=== PATIENT | female | born 1945 | race Caucasian/White ===

== ENCOUNTER → 2017-02-14 | Outpatient (CLI) | payer OTHER, BC | LOC: FIMAGING 12:35 | PROVIDERS: ATTEND Family Medicine | DX: Z12.31 Encounter for screening mammogram for malignant neoplasm of breast (principal) | CPT/HCPCS: G0202 ==

== ENCOUNTER 2018-03-01 13:54 | Inpatient (IN) | payer OTHER, BC ==
--- NOTE | 2018-03-01 14:28 | CPEKG ---
Heart Rate: 86 RR Interval: 698 P-R Interval: 184 QRSD Interval: 106 QT Interval: 364 QTC Interval: 436 P Sterling: 78 QRS Sterling: 18 T Wave Sterling: 39 EKG Severity - NORMAL ECG - EKG Impression: SINUS RHYTHM Electronically Signed By: Bhupinder Carlin 01-Mar-2018 16:45:10
--- NOTE | 2018-03-01 14:37 | EDPHY ---
H & P Stated Complaint: SHAKY/WEAKNESS/DIZZY Time Seen by Provider: 03/01/18 14:37 HPI/ROS: CHIEF COMPLAINT: Fatigue HISTORY OF PRESENT ILLNESS: The patient presents the ED with a 1 month history of fatigue. She reports that she has she has had profound dyspnea with any attempted exertion. She denies any chest pain or prior history of coronary artery disease. She denies asymmetric calf pain or swelling. The patient reports she has a history of Lyme disease and was recently treated with stem cell therapy. She is on a number of medications for hypertension which she has been on since her 20s. REVIEW OF SYSTEMS: A comprehensive 10 point review of systems is otherwise negative aside from elements mentioned in the history of present illness. Source: Patient Exam Limitations: No limitations - Personal History Current Tetanus Diphtheria and Acellular Pertussis (TDAP): Yes - Medical/Surgical History Hx Asthma: No Hx Chronic Respiratory Disease: No Hx Diabetes: No Hx Cardiac Disease: No Hx Renal Disease: No Hx Cirrhosis: No Hx Alcoholism: No Hx HIV/AIDS: No Hx Splenectomy or Spleen Trauma: No Other PMH: HTN LYME DISEASE/ ARTHRITIS0 - Social History Smoking Status: Never smoked - Physical Exam Exam: General Appearance: Alert, no distress Eyes: Pupils equal and round no pallor or injection ENT, Mouth: Mucous membranes moist Respiratory: There are no retractions, lungs are clear to auscultation Cardiovascular: Regular rate and rhythm Gastrointestinal: Abdomen is soft and nontender, no masses, bowel sounds normal Neurological: A&O, normal motor function, normal sensory exam, normal cranial nerves Skin: Warm and dry, no rashes Musculoskeletal: Neck is supple nontender Extremities: symmetrical, full range of motion Constitutional: Initial Vital Signs Temperature (C) 36.8 C 03/01/18 14:03 Heart Rate 96 03/01/18 14:03 Respiratory Rate 18 03/01/18 14:03 Blood Pressure 120/65 03/01/18 14:03 O2 Sat (%) 97 03/01/18 14:03 O2 Delivery Mode Room Air Allergies/Adverse Reactions: penicillin V potassium [From Pen-Vee K] Allergy (Severe, Verified 03/01/18 14:00 ) ANAPHYLACTIC REACTION lisinopril Allergy (Intermediate, Verified 03/01/18 14:00) COUGH IV DYE Allergy (Severe, Uncoded 12/16/12 23:09) ANAPHYLACTIC Home Medications: Medication Instructions Recorded Atorvastatin Calcium [Lipitor 40 40 mg PO HS 03/01/18 mg (*)] Hydrochlorothiazide [HCTZ (*)] 25 mg PO DAILY 03/01/18 Nature-Throid 65 mg PO DAILY 03/01/18 Valsartan [Diovan] 320 mg PO HS 03/01/18 amLODIPine BESYLATE [Norvasc 10 mg 10 mg PO HS 03/01/18 (*)] Medical Decision Making - Diagnostics EKG Interpretation: EKG: Complete interpretation has been separately recorded in the [facility] archive. Summary impression: Sinus rhythm, rate 86 she ED Course/Re-evaluation: The patient presents the ED for evaluation of worsening exertional dyspnea. The patient was noted to be hemodynamically stable. She has no complaints of pleuritic chest pain. The patient denies significant past medical history outside of hypertension although she was apparently treated with some sort of stem cell therapy for reported Lyme disease. The patient's EKG demonstrates no evidence of ischemia. Her chest x-ray demonstrates no evidence of acute disease. Echocardiogram demonstrated no significant wall motion abnormality or pleural effusion. The patient's CBC took some time to around and returned with pancytopenia. The patient's hematocrit is 18%. She is leukopenic and thrombocytopenic. Consultation is made with the hospitalist service and Hematology-Oncology. Spoke with Dr. Keith Castro at 4:00 p.m.. The patient will be admitted to the hospital by Dr. Osei Cyr. The patient will be admitted to the hospital for further evaluation and management. The primary about a in the Differential Diagnosis: Differential diagnosis considered includes congestive heart failure, arrhythmia , dehydration, pneumonia, critical anemia, congestive heart failure, myocardial infarction, cardiomyopathy - Data Points Laboratory Results: Laboratory Results 03/01/18 14:35 03/01/18 14:35 03/01/18 03/01/18 03/01/18 15:04 14:35 14:35 WBC RBC Hgb Hct MCV MCH MCHC RDW Plt Count MPV Neut % (Auto) Lymph % (Auto) [place] % (Auto) Eos % (Auto) Baso % (Auto) Nucleat RBC Rel Count Absolute Neuts (auto) Absolute Lymphs (auto) Absolute Monos (auto) Absolute Eos (auto) Absolute Basos (auto) Absolute Nucleated RBC Immature Gran % Seg Neutrophils % Lymphocytes % Myelocytes % Blast Cells % Immature Gran # Absolute Seg Neuts Absolute Lymphocytes Absolute Monocytes Absolute Myelocytes Absolute Blast Cells Platelet Estimate Oval Macrocytes Rouleaux Smear Review By D-Dimer 0.67 ug/mLFEU H ug/mLFEU (0.00-0.50) Sodium Potassium Chloride Carbon Dioxide Anion Gap BUN Creatinine Estimated GFR Glucose Calcium Lactate Dehydrogenase 534 IU/L IU/L (313-618) POC Troponin I 0.00 ng/mL ng/mL (0.00-0.08) NT-Pro-B Natriuret Pep TSH Free T3 03/01/18 03/01/18 14:35 14:35 WBC 1.68 10^3/uL L 10^3/uL (3.80-9.50) RBC 1.80 10^6/uL L 10^6/uL (4.18-5.33) Hgb 6.3 g/dL L g/dL (12.6-16.3) Hct 18.3 % L % (38.0-47.0) MCV 101.7 fL H fL (81.5-99.8) MCH 35.0 pg H pg (27.9-34.1) MCHC 34.4 g/dL g/dL (32.4-36.7) RDW 15.2 % % (11.5-15.2) Plt Count 18 10^3/uL L* 10^3/uL (150-400) MPV 9.5 fL fL (8.7-11.7) Neut % (Auto) TNP Lymph % (Auto) TNP [place] % (Auto) TNP Eos % (Auto) TNP Baso % (Auto) TNP Nucleat RBC Rel Count 9.5 % H % (0.0-0.2) Absolute Neuts (auto) TNP Absolute Lymphs (auto) TNP Absolute Monos (auto) TNP Absolute Eos (auto) TNP Absolute Basos (auto) TNP Absolute Nucleated RBC 0.16 10^3/uL H 10^3/uL (0-0.01) Immature Gran % TNP Seg Neutrophils % 4.1 % % Lymphocytes % 93.9 % % Myelocytes % 1 % % Blast Cells % 1 % % Immature Gran # TNP Absolute Seg Neuts 0.07 10^/uL L 10^/uL (1.70-6.50) Absolute Lymphocytes 1.58 10^3/uL 10^3/uL (1.00-3.00) Absolute Monocytes 0.00 10^3/uL L 10^3/uL (0.30-0.80) Absolute Myelocytes 0.02 10^3/mL H 10^3/mL (0.00-0.00) Absolute Blast Cells 0.02 10^3/uL H 10^3/uL (0.00-0.00) Platelet Estimate DECREASED L (ADEQ) Oval Macrocytes 1+ H Rouleaux PRESENT H Smear Review By Pending D-Dimer Sodium 137 mEq/L mEq/L (135-145) Potassium 4.3 mEq/L mEq/L (3.3-5.0) Chloride 101 mEq/L mEq/L (97-110) Carbon Dioxide 20 mEq/l L mEq/l (22-31) Anion Gap 16 mEq/L mEq/L (8-16) BUN 35 mg/dL H mg/dL (7-23) Creatinine 1.4 mg/dL H mg/dL (0.6-1.0) Estimated GFR 37 Glucose 110 mg/dL H mg/dL (70-100) Calcium 8.6 mg/dL mg/dL (8.5-10.4) Lactate Dehydrogenase POC Troponin I NT-Pro-B Natriuret Pep 61 pg/mL pg/mL (0-125) TSH 0.438 uIU/mL L uIU/mL (0.465-4.680) Free T3 4.51 pg/mL pg/mL (2.77-5.27) Point of Care Test Results: Chemistry 03/01/18 15:04 POC Troponin I 0.00 ng/mL ng/mL (0.00-0.08) Departure - Departure Disposition: [facility] Inpatient Acute Clinical Impression: Pancytopenia, Exertional dyspnea Condition: Fair
[2018-03-01 15:43] LABS: PLATELET COUNT 18 10^3/uL (150-400)
[2018-03-01] MEDS ORDERED: ONDANSETRON DISINTEGRATING 4 MG TAB PO PRN (16:26)
[2018-03-01] MEDS ORDERED: ONDANSETRON 4 MG/2 ML VIAL IVP PRN (16:26)
--- NOTE | 2018-03-01 16:55 | ECHO ---
[email or web address] [address] Main: [phone] Fax: Transthoracic Echocardiogram Name: WALDO GRANDE MR#: [id number] Study Date: 03/01/2018 Study Time: 03:30 PM Date of : 1945 Age: 72 year(s) Height: 157.5 cm (62 in.) Weight: 124.74 kg (275 lb.) BSA: 2.19 m2 Gender: Female Examination: Echo Indication: Acute SOB Image Quality: Contrast: Requested by: Bhupinder Carlin BP: 120 mmHg/65 mmHg Heart Rate: Rhythm: Normal sinus rhythm Indication: Acute SOB Procedure Staff Client Relationship Manager: Toni Purdy RDCS Reading Physician: Christine Orellana MD Requesting Provider: Conclusions: Normal size left ventricle. No LV hypertrophy. Normal global systolic LV function. EF is 70 %. No regional wall motion abnormality. Normal size right ventricle. Normal RV function. The pulmonary artery pressure is normal. No pericardial effusion. No significant valvular disease. No prior echo. Measurements: Chambers Valvular Assessment AV/MV Valvular Assessment TV/PV Normal Normal Normal Name Value Range Name Value Range Name Value Range Ao Marycarmen (MM): 2.9 cm (2.2 cm-3.7 AV Vmax: 2.33 m/s (1 m/s-1.7 TR Vmax: 2.82 mm/s ( - ) cm) m/s) TR PGmax: 32 mmHg ( - ) IVSd (2D): 1.0 cm (0.6 cm-1.1 AV maxP mmHg ( - ) syst. PAP: 37 mmHg ( - ) cm) LVOT Vmax: 1.04 m/s (0.7 m/s-1.1 PV Vmax: 1.24 m/s (0.6 m/s-0.9 LVDd (2D): 4.4 cm (3.9 cm-5.3 m/s) m/s) cm) MV E Vmax: 1.21 m/s ( - ) PV PGmax: 6 mmHg ( - ) LVDs (2D): 2.7 cm (2.1 cm-4 MV A Vmax: 1.40 m/s ( - ) cm) MV E/A: 0.86 ( - ) LVPWd (2D): 1.0 cm ( - ) LVEF (2D): 70 (>=54 %) Continued Measurements: Chambers Valvular Assessment AV/MV Valvular Assessment TV/PV Patient: WALDO GRANDE Study Date: 03/01/2018 Page 1 of 2 03:30 PM Name Value Name Value Name Value LADs Lon.4 cm MV E/E' Septal: 15.50 CVP (est.): 5 mmHg LA Area: 17.2 cm2 MV E/E' Lateral: 13.90 Findings: Left Ventricle: Normal size left ventricle. No LV hypertrophy. Normal global systolic LV function. EF is 70 %. No regional wall motion abnormality. Diastolic dysfunction is present. . Right Ventricle: Normal size right ventricle. Normal RV function. Left Atrium: The left atrium is normal in size. Right Atrium: The right atrium is normal in size. Mitral Valve: The mitral valve is normal in appearance and function. Aortic Valve: The aortic valve is normal in appearance and function. The aortic valve is tri-leaflet. There is no aortic valve regurgitation. No aortic valve stenosis is present. Tricuspid Valve: The tricuspid valve appears normal. Trivial tricuspid valve regurgitation. The pulmonary artery pressure is normal. Pulmonic Valve: The pulmonic valve is normal in appearance and function. Aorta: The aorta is normal. Pericardium: No pericardial effusion. Exam Comments: (No Signature Object) Patient: WALDO GRANDE Study Date: 03/01/2018 Page 2 of 2 03:30 PM [id number]
--- NOTE | 2018-03-01 17:16 | GHP ---
[f rep st] HISTORY AND PHYSICAL DATE OF ADMISSION: 03/01/2018 HISTORY OF PRESENT ILLNESS: The patient is a 72-year-old female with a history of Lyme disease with resultant arthritis, as well as hypertension and obesity, who presents with fatigue. She has noticed that she has had a poor appetite. She has not had weight loss. She has not had drenching night swe ats. She has noticed she has looked more pale. She has not had black stool. She denies hematemesis , coffee-grounds emesis. She has just noticed increasing dyspnea on exertion, so ultimately sought c are here today, where she was found to be pancytopenic. She has worked as an vocational training teacher. She h as not had much chemical exposure. She has not smoked since 1990. She does not have a family histor y of hematologic malignancies. REVIEW OF SYSTEMS: Complete 10-point review of systems conducted and negative, except as noted in th e HPI. PAST MEDICAL HISTORY: Lyme disease. In the last couple of years, she has had some stem cell therapy , where it sounds like they withdrew stem cells, and 1 time evie stem cells from her bone marrow and injected them into her joint space, and the other time they just replaced them IV. It is not clear w hat alterations were done. This was done in [place]. She also has hypertension, obesity, and hypot hyroidism. ALLERGIES: Penicillin, potassium, lisinopril, and IV dye. HOME MEDICATIONS: Amlodipine, atorvastatin, hydrochlorothiazide, Nature Thyroid, and valsartan. SOCIAL HISTORY: Quit smoking. No tobacco. Originally from [place]. FAMILY HISTORY: Father had heart disease. PHYSICAL EXAMINATION: VITAL SIGNS: Temp 36.8, blood pressure 139/72, pulse 90, breathing 16 times a minute, 100% on room air. GENERAL: No acute distress, anxious. HEENT: Sclerae anicteric. Sclera e are pale. Oropharynx clear. NECK: Supple, without lymphadenopathy or JVD. LUNGS: Clear to ausc ultation bilaterally. HEART: S1, S2. Not tachycardic. ABDOMEN: Soft. Body habitus makes an exam difficult. LOWER EXTREMITIES: Without edema. Calves are nontender. SKIN: Without rash. NEUROLO GIC: Exam is nonfocal. LABORATORY DATA: Sodium is 137, potassium 4.3, chloride 101, bicarb 20, BUN 35, creatinine 1.4. Bas chava is about 1. TSH is slightly low at 0.438. BNP is 61, normal value. Troponin 0. Free T3 is 4 .51. D-dimer is elevated. White count is 1.68, hemoglobin 6.3, hematocrit 18.3. Platelets are 18. EKG interpreted by me shows sinus, with normal axis and intervals and no ST or T-wave changes. I shukla ve discussed the case with Dr. Johnny Carlin. ASSESSMENT AND PLAN: This 72-year-old female presents with pancytopenia. 1. Pancytopenia. The differential includes leukemia, lymphoma, myelodysplastic syndrome, or toxin e xposure. She has had stem cell removal with reintroduction to her joint space. It is hard to see ho w this is playing a role, but I will defer this to Dr. Castro. 2. She will be seen in consultation by Heme-Onc. I have held off on scanning her given her IV contr ast dye. She needs a bone marrow biopsy. 3. Acute kidney injury. Her creatinine is above baseline. I will hold her thiazide, give her some IV fluids. 4. Hypertension. Will continue her amlodipine and will hold her Diovan for the time being. 5. Prophylaxis. Sequential compression devices. Pharmacologic prophylaxis contraindicated given her low platelets. DISPOSITION: Inpatient status. /[id number]/MODL
[2018-03-01] MEDS: NS 1,000 ML IV SCH (17:36)
[2018-03-01] MEDS ORDERED: diphenhydrAMINE 25 MG CAP PO ONE (18:18)
[2018-03-01] MEDS ORDERED: ACETAMINOPHEN 325 MG TAB PO ONE (18:18)
--- NOTE | 2018-03-01 19:16 | GCON ---
[f rep st] CONSULTATION REASON FOR CONSULTATION: Pancytopenia. REFERRING PHYSICIANS: Dr. Cyr. HISTORY OF PRESENT ILLNESS: Zaina is a 72-year-old woman whose main problems has been her morbid obes ity and significant arthritis, who reports that since January 16, she has been feeling weak and lack of st bia. She has had no energy and really has not been eating much. She believes she has lost weight, but does not know how much, although she denies any fever or night sweats. She also notices a heigh tened sense of smell. She felt like at times she was going to fall. More in the last few days, she has noticed that she had been more pale. She denied any bleeding, blood in her stools or black tarry stools. She was having increasing dyspnea on exertion, but denied chest pain. She was having some pain in her left upper quadrant. She presented to the emergency room where they did a CBC that showe d that she was significantly pancytopenic. She is admitted to the hospital for supportive therapy as well as for workup. ALLERGIES: PENICILLIN VK, LISINOPRIL, AND IV CONTRAST DYE. HOME MEDICATIONS: 1. Thyroid replacement. 2. Amlodipine. 3. Atorvastatin. 4. Hydrochlorothiazide. 5. Valsartan. CHRONIC ILLNESSES: 1. High blood pressure. 2. Arthritis particularly in the knees and shoulders for which she has had stem-cell therapy directl y to the knee and shoulder in 2016 and stem-cell therapy intravenously in 2017. 3. Previous Lyme disease. 4. Asthma as a child and seasonal allergies, but she is not on medication. 5. Morbid obesity. 6. Hypothyroidism. SURGICAL HISTORY: She had Achilles repair and tonsillectomy, but has never gone under general anesth esia. SOCIAL HISTORY: She is not , but she has a partner. 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 She previously smoked up until 1990. She probably had approximately 15 pack year hist ory, but denied alcohol or illicit drug use. FAMILY HISTORY: Mother at age 93 from complications of a stroke which she had at 84, and then k idney failure. Father age 68 from complications after cardiac surgery. She has 2 daughters in good health. One sister. There is some cancer in her family, including an aunt with breast cancer, an aunt with pancreatic cancer, an aunt with ovarian cancer, but not in her first-degree relatives. REVIEW OF SYSTEMS: 10-point review of systems performed pertinent positives as per HPI, otherwise ne gative. PHYSICAL EXAM: VITAL SIGNS: Temperature is 36.8, pulse is 93, blood pressure is 123/67. GENERAL: She is a pale-appearing woman, a little bit anxious but in no distress. She is appropriate to the si tuation. HEENT: Sclerae nonicteric. Extraocular muscles are intact. Pupils equal, round, reactive to light. Oral mucosa is unremarkable. It is pale. LUNGS: Clear. CARDIAC: Is hyperdynamic with a systolic flow murmur. Mildly tachycardic. ABDOMEN: Soft. She is mildly tender in the left uppe r quadrant with some fullness, but I can't appreciate a specific spleen tip. No hepatomegaly or palp able masses. I did not do a rectal exam tonight. NEURO: Exam appeared to be grossly intact, althou gh she is generally weak. MUSCULOSKELETAL: Nontender over her spine. LABS: Chemistry panel, BUN and creatinine is 35 and 1.4. LFTs are not done yet. LDH is normal. D- dimer slightly elevated at 0.67. CBC, white count 1700 with an ANC of near 0. Most of the cells wer e lymphocytes. She has some myelocytes in a small amount of blasts and some nucleated red cells. He moglobin is 6.3 g/dL with an MCV of 101. This is before hydration. Platelet count is 18,000. Roule aux was present on the smear. Chest x-ray was reported as unremarkable, no change since 2013. EKG normal sinus rhythm. Echocardiogram showed a normal ejection fraction, some evidence of diastoli c dysfunction. IMPRESSION: Significant pancytopenia. Its specific cause at this point is unknown, but it appears to be some sort of a bone marrow failure whether such as aplastic disease or myelodysplastic syndrome versus an infiltrative disorder such as leukemia, lymphoma is unclear at this time. I will draw some multiple labs tonight, but because she is symptomatic, I have recommended giving her 2 units of blood. Hopefully that will help her feel a little stronger and alleviate some of the dyspnea. Tomorrow, we will talk to her about doing a bone marrow biopsy for diagnostic, and very similar to the procedure she had for collecting stem cells, so she is aware of that. The risk is low with main risks being discomfort, bleeding and infection. I answered her and her family's questions to the best my ability and I will follow up with her while joshua prieto is in the hospital. I did not recommend starting on prophylactic antibiotics as she is not febrile , although she does sometimes feel chilled and cold. We will need to watch her closely. Finally, joshua prieto did not have any significant signs of bleeding or bruising, so did not recommend a platelet transfu nadir. /[id number]/MODL
[2018-03-01 21:25] LABS: HEPATITIS B SURFACE ANTIGEN NEGATIVE (NEGATIVE)
[2018-03-01 21:30] LABS: HEPATITIS B CORE AB IGM NEGATIVE (NEGATIVE)
[2018-03-01 21:42] LABS: HEPATITIS C ANTIBODY TOTAL NEGATIVE (NEGATIVE)
[2018-03-01] MEDS: ATORVASTATIN CALCIUM 40 MG TAB PO SCH (21:50)
[2018-03-01 21:52] LABS: INR 1.27 (0.83-1.16); PROTIME(PATIENT) 16.1 SEC (12.0-15.0)
[2018-03-01 21:57] LABS: PLATELET COUNT 15 10^3/uL (150-400)
[2018-03-02 05:53] LABS: INR 1.23 (0.83-1.16); PROTIME(PATIENT) 15.7 SEC (12.0-15.0)
[2018-03-02 06:10] LABS: PLATELET COUNT 13 10^3/uL (150-400)
[2018-03-02] MEDS: NATURE THROID 65 MG PO SCH (07:41)
[2018-03-02] MEDS ORDERED: HYDROCHLOROTHIAZIDE 25 MG TAB PO SCH (09:00)
[2018-03-02] MEDS: NS 1,000 ML IV SCH (10:29)
--- NOTE | 2018-03-02 13:18 | HOSPPROG ---
Hospitalist Progress Note Assessment/Plan: #Pancytopenia, Etiology unclear, w/u is pending #Morbid Obesity #HTN #acute renal failure #Abd pain, resolved Studies: Echo: Preserved LVEF, Diastolic dysfunction Plan: -transfuse 1 additional PRBC unit -no need for platelets at this time, recheck in a.m. -Stop IVF -Labs in a.m. -BM biopsy today -Hold Thiazide and Diovan. Cont Norvasc -SCD's Subjective: no cp or sob. Hgbs has increased. Cr is improving Objective: Vital Signs Temp Pulse Resp BP Pulse Ox 36.8 C 81 18 126/67 H 96 03/02/18 07:23 03/02/18 07:23 03/02/18 07:23 03/02/18 07:23 03/02/18 07:23 Laboratory Results 03/02/18 04:55 03/02/18 04:55 03/01/18 03/02/18 03/03/18 05:59 05:59 05:59 Intake Total 100 Balance 100 PT 15.7 SEC (12.0-15.0) H 03/02/18 04:55 INR 1.23 (0.83-1.16) H 03/02/18 04:55 - Physical Exam Constitutional: no apparent distress Eyes: PERRL, EOMI Ears, Nose, Mouth, Throat: moist mucous membranes, hearing normal, ears appear normal Cardiovascular: regular rate and rhythym, No edema Respiratory: no respiratory distress, no rales or rhonchi Gastrointestinal: normoactive bowel sounds, soft, non-tender abdomen Skin: warm Musculoskeletal: full muscle strength Neurologic: AAOx3 Psychiatric: interacting appropriately, not anxious, not encephalopathic ICD10 Worksheet Patient Problems: Problems Problem Status Onset Exertional dyspnea Acute Pancytopenia Acute
--- NOTE | 2018-03-02 13:31 | PDMN ---
Medical Necessity Medical necessity: Pt meets IP criteria per MD; est los >2 mn for eval/tx of significant pancytopenia w/dyspnea, fatigue & acute kidney injury; admit for Heme/Onc consult, further workup/monitoring, IVFs, blood transfusion & therapy; hx HTN, Lyme disease; per H&P & order 03/01/18
--- NOTE | 2018-03-02 14:14 | ASMTCMCOM ---
CM Note CM Note Notes: Pt has been admitted with pancytopenia of unknown etiology and is currently being worked up. She has a hx of Lyme disease with stem cell therapy, HTN, morbid obesity, arthritis, hypothyroidism. Oncology is following. She is scheduled for a bone marrow bx today. She has life partner and lives here in [place]. CM will follow for any d/c needs. Date Signed: 03/02/2018 02:13 PM Electronically Signed By:RAVINDER Rivera
[2018-03-02] MEDS ORDERED: LIDOCAINE 1% 5 ML SDV ONE (14:18)
[2018-03-02] MEDS ORDERED: LIDOCAINE 1% 5 ML SDV ID ONE (14:30)
--- NOTE | 2018-03-02 14:44 | SOAPPROG ---
SOAP Progress Note Assessment/Plan: E&M for pancytopenia * Severe Pancytopenia: etiology unknown at this time. With very low counts, aplastic anemia is possible. Cannot r/o leukemia or MDS. Hairy Cell leukemia unlikely with normal spleen. Will try bedside bone marrow but if not successful will consult IR. * Anemia: transfuse with irradiated blood for hgb<7 g/dL * Thrombocytopenia: transfuse irradiated for platelets<10K or bleeding. will give a unit today * Neutropenia: no fever; not on abx at this time Subjective: Feels a little better after transfusion. Some mild nose bleeding but no other bleeding. Objective: Vital Signs Temp Pulse Resp BP Pulse Ox 36.6 C 92 18 141/100 H 99 03/02/18 14:05 03/02/18 14:05 03/02/18 07:23 03/02/18 14:05 03/02/18 14:05 Laboratory Results 03/02/18 04:55 03/02/18 04:55 03/01/18 03/02/18 03/03/18 05:59 05:59 05:59 Intake Total 100 Balance 100 PT 15.7 SEC (12.0-15.0) H 03/02/18 04:55 INR 1.23 (0.83-1.16) H 03/02/18 04:55 Laboratory Tests 03/01/18 03/01/18 14:35 19:40 Vitamin B12 935 H Folate > 20.00 Rheum Factor Semi-Quant < 8.6 Hep Bs Antigen NEGATIVE Hep B Core IgM Ab NEGATIVE Hepatitis C Antibody NEGATIVE U/S - no splenomegaly Physical Exam - Physical Exam General Appearance: no apparent distress, obese Respiratory: lungs clear Cardiac/Chest: regular rate, rhythm Abdomen: soft Rectal: other Skin: other (bruising) ICD10 Worksheet Patient Problems: Problems Problem Status Onset Exertional dyspnea Acute Pancytopenia Acute
--- NOTE | 2018-03-02 16:01 | GPN ---
[f rep st] PROCEDURE NOTE REASON FOR PROCEDURE: Severe pancytopenia. PROCEDURE: Bone marrow aspirate and biopsy. DESCRIPTION OF PROCEDURE: Risks and benefits of the procedure were explained to the patient. Brigid logan consent was obtained. The patient was laid on her stomach, and the right iliac crest was prepped a nd draped in usual sterile fashion. Approximately 10 cc of 1% lidocaine were infused into the area. It was very difficult to find her iliac crest, and initial pass obtained a dry tap. Attempts at a c ore biopsy failed and then she had too much discomfort. Because of her size and the situation, I rec ommended stopping and attempting through Interventional Radiology. /[id number]/MODL
[2018-03-02] MEDS: ACETAMINOPHEN 325 MG TAB PO PRN (16:52)
[2018-03-02] MEDS: ATORVASTATIN CALCIUM 40 MG TAB PO SCH (20:39)
[2018-03-02] MEDS ORDERED: ZOLPIDEM TARTRATE 5 MG TAB PO PRN (23:35)
[2018-03-03 07:02] LABS: PLATELET COUNT 15 10^3/uL (150-400)
--- NOTE | 2018-03-03 07:40 | HOSPPROG ---
Hospitalist Progress Note Assessment/Plan: #Pancytopenia, Etiology unclear, w/u is pending #Morbid Obesity #HTN #acute renal failure, resolved #Abd pain, resolved Studies: Echo: Preserved LVEF, Diastolic dysfunction Plan: NPO for IR BM biopsy today stop IVF once procedure done cont home meds recheck labs in a.m. no indication for transfusion today unless she needs platelets for BM biopsy Platelets were ordered yesterday per Onc but not given. Hold Thiazide. SCD's Subjective: npo. IR to perform BM biopsy today. no cp or sob. Cr has normalized Objective: Vital Signs Temp Pulse Resp BP Pulse Ox 37.1 C 90 18 146/91 H 92 03/03/18 04:00 03/03/18 04:00 03/03/18 04:00 03/03/18 04:00 03/03/18 04:00 Laboratory Results 03/03/18 05:25 03/03/18 05:25 03/02/18 03/03/18 03/04/18 05:59 05:59 05:59 Intake Total 100 Balance 100 PT 15.7 SEC (12.0-15.0) H 03/02/18 04:55 INR 1.23 (0.83-1.16) H 03/02/18 04:55 - Physical Exam Constitutional: no apparent distress, not in pain Eyes: PERRL, EOMI Ears, Nose, Mouth, Throat: moist mucous membranes, hearing normal Cardiovascular: regular rate and rhythym, No edema Respiratory: no rales or rhonchi, clear to auscultation, No no respiratory distress Gastrointestinal: normoactive bowel sounds, soft, non-tender abdomen Skin: warm Musculoskeletal: full muscle strength Neurologic: AAOx3 Psychiatric: interacting appropriately, not anxious, not encephalopathic Lymph, Heme, Immunologic: No petechiae ICD10 Worksheet Patient Problems: Problems Problem Status Onset Exertional dyspnea Acute Pancytopenia Acute
--- NOTE | 2018-03-03 08:26 | SOAPPROG ---
SOAP Progress Note Assessment/Plan: Assessment: 1. Severe pancytopenia. DDx includes leukemia, MDS, aplastic anemia, other 2. Renal impairment, resolved with fluids Plan: - BMBx by IR as soon as possible. bedside BMBx unsuccessful due to pt's body habitus. pt's ANC is 0. Very high risk of infection or bleeding. Prompt diagnosis needed - no transfusions needed today - no clinical e/o DIC but INR mildly elevated- will continue to monitor - prognosis and treatment to be determined by bone marrow biopsy results which should yield the diagnosis. 35 min spent w/ pt and in coordination of care. 03/03/18 08:24 Subjective: no complaints. some bleeding from a venipuncture site and mild epistaxis. Objective: exam; NAD Lungs CTAB CV RRR no MGR Abd: +BS NT ND Ext: no edema Neuro: a+ox3 Skin: no petechie or purpura Vital Signs Temp Pulse Resp BP Pulse Ox 37.1 C 90 18 146/91 H 92 03/03/18 04:00 03/03/18 04:00 03/03/18 04:00 03/03/18 04:00 03/03/18 04:00 Laboratory Results 03/03/18 05:25 03/03/18 05:25 03/02/18 03/03/18 03/04/18 05:59 05:59 05:59 Intake Total 100 Balance 100 PT 15.7 SEC (12.0-15.0) H 03/02/18 04:55 INR 1.23 (0.83-1.16) H 03/02/18 04:55 ICD10 Worksheet Patient Problems: Problems Problem Status Onset Exertional dyspnea Acute Pancytopenia Acute
[2018-03-03] MEDS: NATURE THROID 65 MG PO SCH (11:33)
[2018-03-03] MEDS ORDERED: LIDOCAINE 1% 300 MG/30 ML SDV ONE (12:51)
[2018-03-03] MEDS ORDERED: MEPERIDINE 25 MG/ML SYR IVP PRN (13:48)
[2018-03-03] MEDS ORDERED: PROTAMINE SULFATE 50 MG/5 ML VIAL IVP PRN (13:48)
[2018-03-03] MEDS ORDERED: GLUCAGON HCL 1 MG VIAL IVP PRN (13:48)
[2018-03-03] MEDS ORDERED: fentaNYL 100 MCG/2 ML INJ IVP PRN (13:48)
[2018-03-03] MEDS ORDERED: ALTEPLASE 2 MG VIAL IVP PRN (13:48)
[2018-03-03] MEDS ORDERED: HEPARIN 10,000 UNIT/10 ML MDV (1,000 UNIT/ML) IVP PRN (13:48)
[2018-03-03] MEDS ORDERED: FLUMAZENIL 0.5 MG/5 ML MDV IVP PRN (13:48)
[2018-03-03] MEDS ORDERED: MIDAZOLAM 2 MG/2 ML VIAL IVP PRN (13:48)
[2018-03-03] MEDS ORDERED: NALOXONE HCL 0.4 MG/ML INJ IVP PRN (13:48)
[2018-03-03] MEDS ORDERED: FLUMAZENIL 0.5 MG/5 ML MDV IVP ONE (13:55)
[2018-03-03] MEDS ORDERED: fentaNYL 100 MCG/2 ML INJ ONE (13:55)
[2018-03-03] MEDS ORDERED: NALOXONE HCL 0.4 MG/ML INJ ONE (13:55)
[2018-03-03] MEDS ORDERED: MIDAZOLAM 2 MG/2 ML VIAL ONE (13:55)
--- NOTE | 2018-03-03 13:56 | PDGENHP ---
History & Physical Chief Complaint: pancytopedia History of Present Illness: pancytopenia suspected acute leukemia. Relevant Physical Exam: NAD, aox3 Cardiorespiratory Assessment: rrr, nl wob
--- NOTE | 2018-03-03 13:56 | PDPROPOC ---
Sedation Plan of Care Sedation Plan of Care: vital signs stable, mental status noted, patient educated of risks, benefits, alternatives, patient can tolerate sedation ASA Classification: ASA 3 Planned drugs: fentanyl, midazolam Mallampati Score: Class 3 Mallampati Reference Image:
[2018-03-03] MEDS ORDERED: NS 1,000 ML IV SCH (14:00)
[2018-03-03] MEDS ORDERED: PROMETHAZINE HCL 25 MG/ML INJ IVP ONE (15:15)
--- NOTE | 2018-03-03 15:26 | PDRADPN ---
Radiology Procedure Note Date of Procedure: 03/03/18 Radiologist: Brock Fang Anesthesia: IV Sedation, Local (Specify) Pre-op Diagnosis: pancytopenia Post-op Diagnosis: same Indication: dx Procedure: CT guided bone marrow biopsy Finding(s): via post left iliac 20mL of marrow aspirate obtained via 11G trocar. An intact 2cm x 13G core was then obtained. Inf/Abcess present in the surg proc area at time of surgery?: No EBL: Minimal Complications: none Specimen(s): samples obtained for cytogenetics, flow and molecular per onco request.
[2018-03-03] MEDS: ACETAMINOPHEN 325 MG TAB PO PRN (17:26)
[2018-03-03] MEDS: ATORVASTATIN CALCIUM 40 MG TAB PO SCH (21:13)
[2018-03-03] MEDS: VALSARTAN 160 MG TAB PO SCH (21:13)
[2018-03-04] MEDS: ACETAMINOPHEN 325 MG TAB PO PRN ×2 (03:02→18:09)
[2018-03-04 06:03] LABS: PLATELET COUNT 11 10^3/uL (150-400)
--- NOTE | 2018-03-04 08:18 | HOSPPROG ---
Hospitalist Progress Note Assessment/Plan: #Pancytopenia, Etiology unclear, w/u is pending -Hgb and platelets decreased today -CT guided BM biopsy on 03/03 #Morbid Obesity #HTN -on home meds #acute renal failure, resolved #Abd pain, resolved Studies: Echo: Preserved LVEF, Diastolic dysfunction Plan: -transfuse PRBC today -consider platelet transfusion, will defer to Heme -trend labs -Hold Thiazide. -Issues with peripheral IV, may need a PICC line pending attempt to replace -SCD's Subjective: low Hgb and platelets today. No significant bruising. no cp or sob. Objective: Vital Signs Temp Pulse Resp BP Pulse Ox 36.9 C 85 18 132/71 H 92 03/04/18 07:43 03/04/18 07:43 03/04/18 07:43 03/04/18 07:43 03/04/18 07:43 Laboratory Results 03/04/18 04:50 03/04/18 04:50 03/03/18 03/04/18 03/05/18 05:59 05:59 05:59 Intake Total 650 Balance 650 PT 15.7 SEC (12.0-15.0) H 03/02/18 04:55 INR 1.23 (0.83-1.16) H 03/02/18 04:55 - Physical Exam Constitutional: no apparent distress Eyes: PERRL Ears, Nose, Mouth, Throat: moist mucous membranes Cardiovascular: regular rate and rhythym Respiratory: no respiratory distress Gastrointestinal: normoactive bowel sounds, soft, non-tender abdomen Skin: warm Neurologic: AAOx3 Psychiatric: interacting appropriately, not anxious, not encephalopathic Lymph, Heme, Immunologic: No petechiae ICD10 Worksheet Patient Problems: Problems Problem Status Onset Exertional dyspnea Acute Pancytopenia Acute
[2018-03-04] MEDS: NATURE THROID 65 MG PO SCH (10:14)
--- NOTE | 2018-03-04 17:15 | ASMTCMCOM ---
CM Note CM Note Notes: CM reviewed patient with VIVI Deng, patient received blood today and discharge date unknown. PT rec' Home Care. CM met with patient and family, patient has not worked with HH agency in the past. Family states they are looking into getting stair riser installed, CM gave [facility] info for possible resources. CM to follow. D/C Plan: TBD. Date Signed: 03/04/2018 05:14 PM Electronically Signed By:Elisha Renteria
[2018-03-04] MEDS: ATORVASTATIN CALCIUM 40 MG TAB PO SCH (20:21)
[2018-03-04] MEDS: VALSARTAN 160 MG TAB PO SCH (20:21)
[2018-03-05 04:56] LABS: INR 1.16 (0.83-1.16)
[2018-03-05 05:27] LABS: PLATELET COUNT 14 10^3/uL (150-400)
[2018-03-05] MEDS: ACETAMINOPHEN 325 MG TAB PO PRN (07:53)
--- NOTE | 2018-03-05 08:24 | HOSPPROG ---
Hospitalist Progress Note Assessment/Plan: Patient is a 72-year-old female with history of Lyme disease with resultant arthritis. She presented to the emergency room with fatigue and also had a poor appetite. Today is my 1st encounter with the patient. Chart reviewed. #Pancytopenia, Etiology unclear, w/u is pending -Hgb and platelets decreased, was given a unit of packed red blood cells on 03/04 -CT guided BM biopsy on 03/03 -DDX includes; Leukemia, MDS, aplastic anemia #Morbid Obesity -BMI of 50 #HTN -on home meds #acute renal failure, resolved #Abd pain, resolved Plan: -awaiting biopsy results to decide on treatment, hold transfusion for now unless hematology recommends it Subjective: Zaina has no c/o pain. Feeling better than she was prior to being admitted. Objective: Vital Signs Temp Pulse Resp BP Pulse Ox 37.1 C 81 18 111/70 93 03/05/18 07:25 03/05/18 07:25 03/05/18 07:25 03/05/18 07:25 03/05/18 07:25 Laboratory Results 03/05/18 04:37 03/05/18 04:37 03/04/18 03/05/18 03/06/18 05:59 05:59 05:59 Intake Total 650 550 Balance 650 550 PT 15.0 SEC (12.0-15.0) 03/05/18 04:37 INR 1.16 (0.83-1.16) 03/05/18 04:37 - Physical Exam Constitutional: no apparent distress, not in pain, chronically ill appearing, obese Eyes: PERRL Ears, Nose, Mouth, Throat: hearing normal Cardiovascular: regular rate and rhythym, no murmur, rub, or gallop, edema ( bilateral lower extremity) Respiratory: no respiratory distress, reduced air movement Skin: warm, No normal color (pale) Neurologic: AAOx3 Psychiatric: interacting appropriately ICD10 Worksheet Patient Problems: Problems Problem Status Onset Exertional dyspnea Acute Pancytopenia Acute
[2018-03-05] MEDS: NATURE THROID 65 MG PO SCH (10:01)
[2018-03-05] MEDS ORDERED: LACTULOSE 20 GM/30 ML UDCUP PO PRN (12:43)
[2018-03-05] MEDS ORDERED: POLYETHYLENE GLYCOL 3350 17 GM PKT PO PRN (12:43)
[2018-03-05] MEDS ORDERED: BISACODYL 10 MG SUPP PR PRN (12:43)
--- NOTE | 2018-03-05 16:08 | SOAPPROG ---
SOAP Progress Note Assessment/Plan: Assessment: 1. Severe pancytopenia. DDx includes leukemia, MDS, aplastic anemia, other. Aspirate is non diagnostic. Awaiting cores/flow/cytogenetics 2. Renal impairment, resolved with fluids Plan: - BMBx results are pending - no transfusions needed today - no clinical e/o DIC but INR mildly elevated- will continue to monitor - prognosis and treatment to be determined by bone marrow biopsy results which should yield the diagnosis. Subjective: No new complaints. Has subjectively more energy after each transfusion. No acute bleeding Objective: Vital Signs Temp Pulse Resp BP Pulse Ox 36.9 C 85 18 113/75 98 03/05/18 15:27 03/05/18 15:27 03/05/18 15:27 03/05/18 15:27 03/05/18 15:27 Laboratory Results 03/05/18 04:37 03/05/18 04:37 03/03/18 03/04/18 03/05/18 23:59 23:59 23:59 Intake Total 650 350 200 Balance 650 350 200 PT 15.0 SEC (12.0-15.0) 03/05/18 04:37 INR 1.16 (0.83-1.16) 03/05/18 04:37 Physical Exam - Physical Exam General Appearance: no apparent distress Respiratory: lungs clear Cardiac/Chest: regular rate, rhythm Abdomen: soft Skin: pallor Extremities: pedal edema Neuro/Psych: normal mood/affect, oriented x 3 ICD10 Worksheet Patient Problems: Problems Problem Status Onset Exertional dyspnea Acute Pancytopenia Acute
[2018-03-05] MEDS: SENNOSIDES/DOCUSATE SODIUM TAB PO SCH (20:54)
[2018-03-05] MEDS: ATORVASTATIN CALCIUM 40 MG TAB PO SCH (20:54)
[2018-03-05] MEDS: VALSARTAN 160 MG TAB PO SCH (20:55)
[2018-03-06 05:40] LABS: PLATELET COUNT 11 10^3/uL (150-400)
[2018-03-06] MEDS: SENNOSIDES/DOCUSATE SODIUM TAB PO SCH ×2 (08:11→20:29)
[2018-03-06] MEDS: ACETAMINOPHEN 325 MG TAB PO PRN ×2 (08:15→16:48)
[2018-03-06] MEDS: NATURE THROID 65 MG PO SCH (09:17)
--- NOTE | 2018-03-06 09:35 | HOSPPROG ---
Hospitalist Progress Note Assessment/Plan: Patient is a 72-year-old female with history of Lyme disease with resultant arthritis. She presented to the emergency room with fatigue and also had a poor appetite. #Pancytopenia, Etiology unclear, w/u is pending -Hgb and platelets decreased, was given a unit of packed red blood cells on 03/04 -will give another unit today -CT guided BM biopsy on 03/03 -DDX includes; Leukemia, MDS, aplastic anemia -with very low platelet count, will have bp checked bid, causes her pain and bruising #Morbid Obesity -BMI of 50 #HTN -on home meds -parameters placed as when to hold #acute renal failure, resolved #Abd pain, resolved Plan: -awaiting biopsy results to decide on treatment Subjective: Zaina is feeling fine today. Objective: Vital Signs Temp Pulse Resp BP Pulse Ox 36.8 C 82 20 121/74 H 94 03/06/18 08:00 03/06/18 08:00 03/06/18 08:00 03/06/18 08:00 03/06/18 08:00 Laboratory Results 03/06/18 05:06 03/05/18 04:37 03/05/18 03/06/18 03/07/18 05:59 05:59 05:59 Intake Total 550 200 Balance 550 200 PT 15.0 SEC (12.0-15.0) 03/05/18 04:37 INR 1.16 (0.83-1.16) 03/05/18 04:37 - Physical Exam Constitutional: no apparent distress, not in pain, obese Eyes: PERRL Ears, Nose, Mouth, Throat: hearing normal Cardiovascular: regular rate and rhythym, other (distant heart tones) Respiratory: no respiratory distress, reduced air movement Skin: other (multiple areas of ecchymosis noted from previous iv sites) Musculoskeletal: generalized weakness Neurologic: AAOx3 Psychiatric: interacting appropriately ICD10 Worksheet Patient Problems: Problems Problem Status Onset Exertional dyspnea Acute Pancytopenia Acute
[2018-03-06] MEDS ORDERED: ACETAMINOPHEN 325 MG TAB PO ONE (10:04)
--- NOTE | 2018-03-06 12:59 | SOAPPROG ---
SOAP Progress Note Assessment/Plan: Assessment: 1. Severe pancytopenia. DDx includes leukemia, MDS, aplastic anemia, other. Aspirate is non diagnostic. Awaiting cores/flow/cytogenetics. Hgb down to 7.0. Will transfuse 1 unit PRBC. Path is still pending. Hopefully will have some results tomorrow. 2. Renal impairment, resolved with fluids Plan: - BMBx results are pending. Check when available - 1 unit PRBC needed today - no clinical e/o DIC but INR mildly elevated- will continue to monitor - prognosis and treatment to be determined by bone marrow biopsy results which should yield the diagnosis. Subjective: Anxious. Hoping for a diagnosis that can be treated with curative intent. Objective: Vital Signs Temp Pulse Resp BP Pulse Ox 36.8 C 82 20 121/74 H 94 03/06/18 08:00 03/06/18 08:00 03/06/18 08:00 03/06/18 08:00 03/06/18 08:00 Laboratory Results 03/06/18 05:06 03/05/18 04:37 03/04/18 03/05/18 03/06/18 23:59 23:59 23:59 Intake Total 350 200 200 Balance 350 200 200 PT 15.0 SEC (12.0-15.0) 03/05/18 04:37 INR 1.16 (0.83-1.16) 03/05/18 04:37 Physical Exam - Physical Exam General Appearance: alert Skin: pallor Neuro/Psych: other (appropriately anxious) ICD10 Worksheet Patient Problems: Problems Problem Status Onset Exertional dyspnea Acute Pancytopenia Acute
--- NOTE | 2018-03-06 13:55 | ASMTCMCOM ---
CM Note CM Note Notes: CM met w/ pt and family for dispo planning. PT is recommending HC. Pt is agreeable to having a physical therapist come into the home. CM provided pt w/ list of HC agencies. Pt would like to use [facility]. Referral sent to [facility]. Denisha from [facility] met w/ pt and family. CM to follow. Plan: [facility]; PT Date Signed: 03/06/2018 01:54 PM Electronically Signed By:GEE Odom
[2018-03-06] MEDS: VALSARTAN 160 MG TAB PO SCH (20:22)
[2018-03-06] MEDS: ATORVASTATIN CALCIUM 40 MG TAB PO SCH (20:23)
[2018-03-07 05:31] LABS: PLATELET COUNT 10 10^3/uL (150-400)
[2018-03-07] MEDS: ACETAMINOPHEN 325 MG TAB PO PRN ×3 (05:51→21:17)
[2018-03-07] MEDS: NATURE THROID 65 MG PO SCH (09:57)
[2018-03-07] MEDS: SENNOSIDES/DOCUSATE SODIUM TAB PO SCH ×2 (09:58→21:20)
--- NOTE | 2018-03-07 11:49 | HOSPPROG ---
Hospitalist Progress Note Assessment/Plan: Patient is a 72-year-old female with history of Lyme disease with resultant arthritis. She presented to the emergency room with fatigue and also had a poor appetite. #Pancytopenia, Etiology unclear, w/u is pending -Hgb and platelets decreased, was given a unit of packed red blood cells on & 03/06 -recommendation is not to give platelets unless bleeding, she will likely require multiple transfusions in the OP setting -CT guided BM biopsy on 03/03 -with very low platelet count, will have bp checked bid, causes her pain and bruising -possible myelodysplasia #Morbid Obesity -BMI of 50 #HTN -on home meds -parameters placed as when to hold #acute renal failure, resolved #Abd pain, resolved Plan: D/C to home in AM as long as she is stable F/U with Dr. España on 09 MARCH 2018 No platelet transfusions unless significant bleeding or pre-procedure will need home care Subjective: Zaina has no complaints x that she is exhausted. Objective: Vital Signs Temp Pulse Resp BP Pulse Ox 37.3 C 84 18 113/57 L 95 03/07/18 07:52 03/07/18 07:52 03/07/18 07:52 03/07/18 07:52 03/07/18 07:52 Laboratory Results 03/07/18 04:55 03/05/18 04:37 03/06/18 03/07/18 03/08/18 05:59 05:59 05:59 Intake Total 200 150 Balance 200 150 PT 15.0 SEC (12.0-15.0) 03/05/18 04:37 INR 1.16 (0.83-1.16) 03/05/18 04:37 - Physical Exam Constitutional: obese, uncomfortable Eyes: PERRL Ears, Nose, Mouth, Throat: hearing normal Cardiovascular: regular rate and rhythym Respiratory: no respiratory distress Skin: warm, No normal color (pale) Musculoskeletal: generalized weakness Neurologic: AAOx3 Psychiatric: interacting appropriately ICD10 Worksheet Patient Problems: Problems Problem Status Onset Exertional dyspnea Acute Pancytopenia Acute
--- NOTE | 2018-03-07 16:17 | SOAPPROG ---
SOAP Progress Note Assessment/Plan: Assessment: 1. Severe pancytopenia. At this point we have preliminary information that the patient's bone marrow is hypocellular but that there are excess blasts in the cellularity that is present. Her flow cytometry shows 8% blasts. The specimens have been sent to the [facility] for a second opinion. 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 I discussed the patients case with Dr. España and Gloira. She may be a candidate for participation in a clinical trial that we have open that looks at Azacitidine +/- Pevinedostat. This is out patient therapy. I discussed this with the patient and her daughters. The plan will be to discharge her to home tomorrow for follow up in the office with Dr. España on 09 MARCH 2018 to further evaluate her eligibility for the clinical trial. Plan: D/C to home in AM F/U with Dr. España on 09 MARCH 2018 No platelet transfusions unless significant bleeding or pre-procedure 40 min in face to face discussion with patient and daughters as well as in coordination of care. Subjective: Anxious to discuss diagnosis and treatment plan. Objective: Vital Signs Temp Pulse Resp BP Pulse Ox 37.3 C 84 18 113/57 L 95 03/07/18 07:52 03/07/18 07:52 03/07/18 07:52 03/07/18 07:52 03/07/18 07:52 Laboratory Results 03/07/18 04:55 03/05/18 04:37 03/05/18 03/06/18 03/07/18 23:59 23:59 23:59 Intake Total 200 200 150 Balance 200 200 150 PT 15.0 SEC (12.0-15.0) 03/05/18 04:37 INR 1.16 (0.83-1.16) 03/05/18 04:37 Physical Exam - Physical Exam General Appearance: alert, no apparent distress Skin: pallor ICD10 Worksheet Patient Problems: Problems Problem Status Onset Exertional dyspnea Acute Pancytopenia Acute
[2018-03-07] MEDS: VALSARTAN 160 MG TAB PO SCH (21:17)
[2018-03-07] MEDS: ATORVASTATIN CALCIUM 40 MG TAB PO SCH (21:18)
[2018-03-08] MEDS: ACETAMINOPHEN 325 MG TAB PO PRN (05:44)
[2018-03-08 05:58] LABS: PLATELET COUNT 9 10^3/uL (150-400)
[2018-03-08] MEDS: SENNOSIDES/DOCUSATE SODIUM TAB PO SCH (10:35)
[2018-03-08] MEDS: NATURE THROID 65 MG PO SCH (10:38)
--- NOTE | 2018-03-08 11:13 | PDIAF ---
- Diagnosis Diagnosis: MDS Code Status: Full Code - Medication Management Discharge Medications: Medications to Continue on Transfer Atorvastatin Calcium [Lipitor 40 mg (*)] 40 mg PO HS 03/01/18 [Last Taken ] Nature-Throid 65 mg PO DAILY 03/01/18 [Last Taken 03/01/18] Valsartan [Diovan] 320 mg PO HS 03/01/18 [Last Taken 02/28/18] amLODIPine BESYLATE [Norvasc 10 mg (*)] 10 mg PO HS 03/01/18 [Last Taken ] Discharge Medications: Refer to the Discharge Home Medication list for PRN reason. - Orders Services needed: Home Care, Registered Nurse, Certified Resident Physician In Radiology, Physical Therapy, Occupational Therapy Home Care Face to Face: I certify that this patient was under my care and that I had the required [id number] encounter meeting the encounter requirements on the discharge day. My findings support the fact that the patient is homebound as defined in Home Care Face to Face Continued: CMS Chapter 7 Medicare Benefits Manual 30.1.1 , The condition of the patient is such that there exists a normal inability to leave home and consequently, leaving home would require a considerable and taxing effort. Isolation Type: Neutropenic Isolation Diet Recommendation: no restrictions on diet - Follow Up Care Current Providers and Referrals: Hima Whittington DO [Primary Care Provider] - As per Instructions Alice España MD [Medical Doctor] - 1-2 days (Please call to make appointment with Dr. España tomorrow )
[2018-03-08 13:05] VITALS: BP 112/64
--- NOTE | 2018-03-08 13:29 | SOAPPROG ---
[facility] Progress Note Assessment/Plan: Assessment: 1. Severe pancytopenia. At this point we have preliminary information that the patient's bone marrow is hypocellular but that there are excess blasts in the cellularity that is present. Her flow cytometry shows 8% blasts. The specimens have been sent to the [facility] for a second opinion. 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 I discussed the patients case with Dr. España and Gloria. She may be a candidate for participation in a clinical trial that we have open that looks at Azacitidine +/- Pevinedostat. This is out patient therapy. I discussed with Zaina today the serious nature of her condition. She is aware that although treatable, this is definitely a life threatening condition and palliation may be the best that we can hope for. Plan: D/C to home today F/U with Dr. España on 09 MARCH 2018 No platelet transfusions unless significant bleeding or pre-procedure Subjective: No new complaints Objective: Vital Signs Temp Pulse Resp BP Pulse Ox 36.9 C 81 17 112/64 95 03/08/18 08:00 03/08/18 08:00 03/08/18 08:00 03/08/18 08:00 03/08/18 08:00 Laboratory Results 03/08/18 05:06 03/05/18 04:37 03/06/18 03/07/18 03/08/18 23:59 23:59 23:59 Intake Total 200 150 300 Output Total 200 400 Balance 200 -50 -100 PT 15.0 SEC (12.0-15.0) 03/05/18 04:37 INR 1.16 (0.83-1.16) 03/05/18 04:37 Physical Exam - Physical Exam General Appearance: alert Skin: pallor Neuro/Psych: alert, oriented x 3 ICD10 Worksheet Patient Problems: Problems Problem Status Onset Exertional dyspnea Acute Pancytopenia Acute
--- NOTE | 2018-03-08 13:45 | ASMTDCNOTE ---
Case Management Discharge Discharge Order Complete? Answers: Yes Patient to Obtain Answers: Independently Medications Transportation Arranged Answers: Family/Friends Faxed Final Orders Answers: Yes Notes: [facility] Agency/Facility Transfer Answers: Yes Notes: [facility] Report Printed & Faxed to Receiving Agency Family Notified Answers: Yes Discharge Comments Notes: Pt D/C ing home with BF and daughter. [facility] will provide home services to include an RN. DIRECTOR OF HOME ECONOMICS, PT and OT. Pt to schedule an appt with Dr. España tomorrow. Date Signed: 03/08/2018 01:44 PM Electronically Signed By:Chely Walter
--- NOTE | 2018-03-08 13:46 | ASMTLACE ---
CHRISTIANAE Length of stay for Answers: 7-13 days current admission Acuity / Level of Answers: Yes Care: Did the patient have an inpatient admission? # of Emergency department Answers: 1-2 visits in the last 6 months Score: 9 Date Signed: 03/08/2018 01:46 PM Electronically Signed By:Cheyl Walter
--- NOTE | 2018-03-08 17:01 | GDS ---
[f rep st] DISCHARGE SUMMARY DISCHARGE DIAGNOSES: 1. 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 2. Morbid obesity. BMI 50. 3. Hypertension. 4. Lyme disease related arthritis. HOSPITAL COURSE: The patient is a 72-year-old female who presented with pancytopenia. Bone marrow b iopsy revealed myelodysplastic syndrome that look like it was involving into AML. She was seen here in consultation with Oncology. Treatment will be outpatient and she will be enrolled in a clinical t rial with Dr. España. She was cleared to discharge home today despite current low levels and will fol low up tomorrow with Dr. España in the office to initiate the treatment protocol. DISCHARGE MEDICATIONS: Please see computerized record for full detailed list. There are no new medi cations given at time of hospital discharge. ADDITIONAL DISCHARGE INSTRUCTIONS: Follow up with Dr. España in 1 day at [facility] to initiate chemotherapy and clinical trial protocol. Greater than 30 minutes of time was spent arranging this discharge. Patient seen and examined by me on the day of discharge. /[id number]
== END 2018-03-08 14:34 | disposition home or self-care (01) | DRG 809 ==
LOC: F3E 17:14 → F1N 03-07 17:32
PROVIDERS: ADMIT Internal Medicine; ATTEND Internal Medicine
PROC: 30233N1 Transfusion of Nonautologous Red Blood Cells into Peripheral Vein, Percutaneous Approach (ICD-10-PCS; 2018-03-01)
PROC: 07DR3ZX Extraction of Iliac Bone Marrow, Percutaneous Approach, Diagnostic (ICD-10-PCS; principal; 2018-03-03)
DX: D61.818 Other pancytopenia (principal); D46.9 Myelodysplastic syndrome, unspecified; C92.90 Myeloid leukemia, unspecified, not having achieved remission; N17.9 Acute kidney failure, unspecified; A69.23 Arthritis due to Lyme disease; E66.01 Morbid (severe) obesity due to excess calories; Z68.43 Body mass index [BMI] 50.0-59.9, adult; I10 Essential (primary) hypertension; E03.9 Hypothyroidism, unspecified; Z87.891 Personal history of nicotine dependence
CPT/HCPCS: 82607-90; 84481-90; 84484-PO; 85060-90; 86334-90; 86705-90; 86870-90; 86905-90; 86922-90; 88184-90; 88185-91; 88237-90; 88262-90; 88342; 97116-GP; 97161-GP; 99001-90; G0472; G8978-GP-CJ; G8979-GP-CI; G8979-GP-CJ; G8980-GP-CI; J2250; J2310; J2405; J2550; J3010; P9016; P9040

== ENCOUNTER 2018-03-11 06:37 | Emergency (ER) | payer OTHER, BC ==
--- NOTE | 2018-03-11 07:26 | EDPHY ---
H & P Time Seen by Provider: 03/11/18 07:03 HPI/ROS: CHIEF COMPLAINT: Bleeding tooth HISTORY OF PRESENT ILLNESS: Patient is a 72-year-old female recently diagnosed with myelodysplastic syndrome who presents to the emergency department with bleeding gums. 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 She was ultimately discharged on 03/08/2018. Yesterday morning she was using a water pick. She developed bleeding in the left upper teeth. The bleeding subsequently stopped after about 15 min but then returned at 3:00 p.m.. Persisted until 10:00 p.m. When she went to bed. She again was awoke in at 2:00 a.m. With bleeding gums. Is persisted since that time. She is not lightheaded or dizzy. No joint pain. No other bruising or bleeding sites. REVIEW OF SYSTEMS: My complete review of systems is negative except as mentioned in the HPI. Past Medical/Surgical History: Includes myelodysplastic disorder, obesity, hypertension, Lyme disease, arthritis Social history: Patient does not smoke Smoking Status: Never smoked Physical Exam: Vitals noted. Tachycardic at 101 GENERAL: Well-appearing, in no acute distress, alert. HEENT: Eyes normal to inspection, normal pharynx, no signs of dehydration. Patient has bleeding on her left upper gum around her teeth. NECK: No thyromegaly, no lymphadenopathy, supple. RESPIRATORY: Clear to auscultation bilaterally, no rales, rhonchi or wheezing. CVS: Regular rate and rhythm, no rubs, murmurs, or gallops. ABDOMEN: Soft, nontender, nondistended, no organomegaly. BACK: Normal to inspection, no CVA tenderness. SKIN: Normal color, no rash, warm, dry. No pallor. EXTREMITIES: No pedal edema, no calf tenderness, no Homans sign or cords, no joint swelling. NEURO/PSYCH: Alert and oriented x3, normal mood and affect, normal motor sensory exam. Constitutional: Initial Vital Signs Temperature (C) 36.8 C 03/11/18 06:43 Heart Rate 101 H 03/11/18 06:43 Respiratory Rate 18 03/11/18 06:43 Blood Pressure 147/94 H 03/11/18 06:43 O2 Sat (%) 96 03/11/18 06:43 O2 Delivery Mode Room Air Allergies/Adverse Reactions: penicillin V potassium [From Pen-Vee K] Allergy (Severe, Verified 03/01/18 14:00 ) ANAPHYLACTIC REACTION lisinopril Allergy (Intermediate, Verified 03/01/18 14:00) COUGH animal dander Allergy (Verified 03/11/18 06:49) IV DYE Allergy (Severe, Uncoded 12/16/12 23:09) ANAPHYLACTIC Home Medications: Medication Instructions Recorded Atorvastatin Calcium [Lipitor 40 40 mg PO HS 03/01/18 mg (*)] Nature-Throid 65 mg PO DAILY 03/01/18 Valsartan [Diovan] 320 mg PO HS 03/01/18 amLODIPine BESYLATE [Norvasc 10 mg 10 mg PO HS 03/01/18 (*)] Medical Decision Making ED Course/Re-evaluation: In the emergency department I discussed possible etiologies with the patient. I answered all her questions. I reviewed the patient's laboratory studies 03/07: 1.36, hematocrit 23.5, platelets 10 03/09: 1.31, hematocrit 20, platelets 9 830: Chemistry panel is normal. INR is 1.17. Awaiting CBC The lab was called regarding the CBC Platelet count was 7. This was pre transfusion. Patient was given a transfusion of platelets. Patient's bleeding improved after the platelets were given. I discussed packing options with the patient. She felt comfortable with discharge. She will return with worsening symptoms. Differential Diagnosis: My differential includes but is not limited to thrombocytopenia, malignancy, internal bleeding, gingivitis, infection - Data Points Laboratory Results: Laboratory Results 03/11/18 07:50 03/11/18 07:50 03/11/18 03/11/18 03/11/18 07:50 07:50 07:50 WBC RBC Hgb Hct MCV MCH MCHC RDW Plt Count MPV Neut % (Auto) Lymph % (Auto) Bennett % (Auto) Eos % (Auto) Baso % (Auto) Nucleat RBC Rel Count Absolute Neuts (auto) Absolute Lymphs (auto) Absolute Monos (auto) Absolute Eos (auto) Absolute Basos (auto) Absolute Nucleated RBC Immature Gran % Seg Neutrophils % Band Neutrophils % Lymphocytes % Monocytes % Eosinophils % Basophils % Metamyelocytes % Myelocytes % Promyelocytes % Blast Cells % Immature Gran # Absolute Seg Neuts Absolute Band Neuts Absolute Lymphocytes Absolute Monocytes Absolute Eosinophils Absolute Basophils Absolute Metamyelocyte Absolute Myelocytes Absolute Promyelocytes Absolute Plasma Cells Absolute Blast Cells Plasma Cells % Platelet Estimate Microcytic Cells Smear Review By PT 15.1 SEC H SEC (12.0-15.0) INR 1.17 H (0.83-1.16) APTT 32.0 SEC SEC (23.0-38.0) Sodium 143 mEq/L mEq/L (135-145) Potassium 3.8 mEq/L mEq/L (3.3-5.0) Chloride 109 mEq/L mEq/L (97-110) Carbon Dioxide 24 mEq/l mEq/l (22-31) Anion Gap 10 mEq/L mEq/L (8-16) BUN 19 mg/dL mg/dL (7-23) Creatinine 0.8 mg/dL mg/dL (0.6-1.0) Estimated GFR > 60 Glucose 108 mg/dL H mg/dL (70-100) Calcium 8.9 mg/dL mg/dL (8.5-10.4) Patient ABO/Rh A POSITIVE Antibody Screen Pending Platelet Orders Status READY 03/11/18 07:50 WBC 1.20 10^3/uL L 10^3/uL (3.80-9.50) RBC 2.57 10^6/uL L 10^6/uL (4.18-5.33) Hgb 8.4 g/dL L g/dL (12.6-16.3) Hct 24.0 % L % (38.0-47.0) MCV 93.4 fL fL (81.5-99.8) MCH 32.7 pg pg (27.9-34.1) MCHC 35.0 g/dL g/dL (32.4-36.7) RDW 16.3 % H % (11.5-15.2) Plt Count 7 10^3/uL L* 10^3/uL (150-400) MPV TNP Neut % (Auto) Not Reported Lymph % (Auto) Not Reported Bennett % (Auto) Not Reported Eos % (Auto) Not Reported Baso % (Auto) Not Reported Nucleat RBC Rel Count Not Reported Absolute Neuts (auto) Not Reported Absolute Lymphs (auto) Not Reported Absolute Monos (auto) Not Reported Absolute Eos (auto) Not Reported Absolute Basos (auto) Not Reported Absolute Nucleated RBC Not Reported Immature Gran % Not Reported Seg Neutrophils % 3.1 % % Band Neutrophils % 0 % % Lymphocytes % 91.9 % % Monocytes % 1.0 % % Eosinophils % 0 % % Basophils % 0 % % Metamyelocytes % 0 % % Myelocytes % 0 % % Promyelocytes % 0 % % Blast Cells % 3.0 % % Immature Gran # Not Reported Absolute Seg Neuts 0.04 10^/uL L 10^/uL (1.70-6.50) Absolute Band Neuts 0.00 10^3/uL 10^3/uL (0.00-0.70) Absolute Lymphocytes 1.10 10^3/uL 10^3/uL (1.00-3.00) Absolute Monocytes 0.01 10^3/uL L 10^3/uL (0.30-0.80) Absolute Eosinophils 0.00 10^3/uL L 10^3/uL (0.03-0.40) Absolute Basophils 0.00 10^3/uL L 10^3/uL (0.02-0.10) Absolute Metamyelocyte 0.00 10^3/mL 10^3/mL (0.00-0.00) Absolute Myelocytes 0.00 10^3/mL 10^3/mL (0.00-0.00) Absolute Promyelocytes 0.00 10^3/uL 10^3/uL (0.00-0.00) Absolute Plasma Cells 0.01 10^3/uL H 10^3/uL (0.00-0.00) Absolute Blast Cells 0.04 10^3/uL H 10^3/uL (0.00-0.00) Plasma Cells % 1.0 % % Platelet Estimate DECREASED L (ADEQ) Microcytic Cells 1+ H Smear Review By Pending PT INR APTT Sodium Potassium Chloride Carbon Dioxide Anion Gap BUN Creatinine Estimated GFR Glucose Calcium Patient ABO/Rh Antibody Screen Platelet Orders Status Departure - Departure Disposition: Home, Routine, Self-Care Clinical Impression: Thrombocytopenia, Gums, bleeding Condition: Good Instructions: Thrombocytopenia (ED) Additional Instructions: Return with increased bleeding or any other concerns. Referrals: Alice España MD [Primary Care Provider] - 2-3 days without fail
[2018-03-11 08:10] LABS: INR 1.17 (0.83-1.16); PROTIME(PATIENT) 15.1 SEC (12.0-15.0)
[2018-03-11 09:19] LABS: PLATELET COUNT 7 10^3/uL (150-400)
[2018-03-11 10:13] VITALS: BP 168/72
== END 2018-03-11 10:05 | disposition home or self-care (01) ==
PROC: 30233R1 Transfusion of Nonautologous Platelets into Peripheral Vein, Percutaneous Approach (ICD-10-PCS; principal; 2018-03-11)
DX: K06.8 Other specified disorders of gingiva and edentulous alveolar ridge (principal); D69.6 Thrombocytopenia, unspecified; I10 Essential (primary) hypertension
CPT/HCPCS: 36430; 99285; P9073

== ENCOUNTER 2018-03-18 09:09 | Outpatient (CLI) | payer OTHER, BC ==
[2018-03-18 11:06] VITALS: BP 124/78
== END 2018-03-18 15:15 | disposition home or self-care (01) ==
LOC: FOBOP 09:09
PROVIDERS: ATTEND Internal Medicine Hematology & Oncology
DX: D46.9 Myelodysplastic syndrome, unspecified (principal)
CPT/HCPCS: 36430; P9016; P9040; P9073; 86905-90

== ENCOUNTER 2018-03-22 10:31 | Outpatient (CLI) | payer OTHER, BC ==
[2018-03-22 11:50] VITALS: BP 111/59
== END 2018-03-22 12:20 | disposition home or self-care (01) ==
LOC: FOBOP 10:31
PROVIDERS: ATTEND Internal Medicine Hematology & Oncology
PROC: 30233R1 Transfusion of Nonautologous Platelets into Peripheral Vein, Percutaneous Approach (ICD-10-PCS; principal; 2018-03-22)
DX: D46.9 Myelodysplastic syndrome, unspecified (principal); Z67.10 Type A blood, Rh positive; Z88.3 Allergy status to other anti-infective agents
CPT/HCPCS: 36430; P9037

== ENCOUNTER 2018-03-27 09:54 | Outpatient (CLI) | payer OTHER, BC ==
[2018-03-27] MEDS ORDERED: ONDANSETRON DISINTEGRATING 4 MG TAB PO ONE (10:45)
== END 2018-03-27 13:45 | disposition home or self-care (01) ==
LOC: FOBOP 09:54
PROVIDERS: ATTEND Internal Medicine Hematology & Oncology
PROC: 30233N1 Transfusion of Nonautologous Red Blood Cells into Peripheral Vein, Percutaneous Approach (ICD-10-PCS; principal; 2018-03-27)
DX: D46.9 Myelodysplastic syndrome, unspecified (principal)
CPT/HCPCS: 36430; P9016; P9040; 82607-90; 82668-90

== ENCOUNTER → 2018-04-01 | Outpatient (CLI) | payer OTHER, BC ==
[~2018-04-01] MED LIST: ACETAMINOPHEN 325 MG TAB PO ONE; diphenhydrAMINE 25 MG CAP PO ONE
== END ==
LOC: FOBOP 09:31
PROVIDERS: ATTEND Internal Medicine Hematology & Oncology
PROC: 30233N1 Transfusion of Nonautologous Red Blood Cells into Peripheral Vein, Percutaneous Approach (ICD-10-PCS; principal; 2018-04-01)
PROC: 30233R1 Transfusion of Nonautologous Platelets into Peripheral Vein, Percutaneous Approach (ICD-10-PCS; principal; 2018-04-01)
DX: D46.9 Myelodysplastic syndrome, unspecified (principal)
CPT/HCPCS: 36430; P9016; P9037; P9040

== ENCOUNTER 2018-04-22 09:00 | Outpatient (CLI) | payer OTHER, BC ==
[2018-04-22] MEDS ORDERED: ACETAMINOPHEN 325 MG TAB PO ONE (09:30)
[2018-04-22] MEDS ORDERED: diphenhydrAMINE 25 MG CAP PO ONE (09:30)
[2018-04-22 14:46] VITALS: BP 111/54
== END 2018-04-22 14:10 | disposition home or self-care (01) ==
LOC: FOBOP 09:00
PROVIDERS: ATTEND Internal Medicine Hematology & Oncology
PROC: 30233N1 Transfusion of Nonautologous Red Blood Cells into Peripheral Vein, Percutaneous Approach (ICD-10-PCS; principal; 2018-04-22)
PROC: 30233R1 Transfusion of Nonautologous Platelets into Peripheral Vein, Percutaneous Approach (ICD-10-PCS; principal; 2018-04-22)
DX: D46.9 Myelodysplastic syndrome, unspecified (principal)
CPT/HCPCS: 36430; P9016; P9037; P9040; 86905-90; 99001-90

== ENCOUNTER 2018-05-08 10:00 | Outpatient (CLI) | payer OTHER, BC | END 2018-05-08 12:15 | disposition home or self-care (01) | LOC: FOBOP 10:00 | PROVIDERS: ATTEND Internal Medicine Hematology & Oncology | PROC: 30233R1 Transfusion of Nonautologous Platelets into Peripheral Vein, Percutaneous Approach (ICD-10-PCS; principal; 2018-05-08) | DX: D46.9 Myelodysplastic syndrome, unspecified (principal) | CPT/HCPCS: 36430; P9037 ==

== ENCOUNTER 2018-05-17 09:27 | Outpatient (CLI) | payer OTHER, BC ==
[2018-05-17] MEDS ORDERED: ACETAMINOPHEN 325 MG TAB PO ONE (09:45)
== END 2018-05-17 17:58 | disposition short-term general hospital (02) ==
LOC: FOBOP 09:27 → F1NOP 17:58
PROVIDERS: ATTEND Internal Medicine Hematology & Oncology
PROC: 30233N1 Transfusion of Nonautologous Red Blood Cells into Peripheral Vein, Percutaneous Approach (ICD-10-PCS; principal; 2018-05-17)
DX: D46.9 Myelodysplastic syndrome, unspecified (principal)
CPT/HCPCS: 36430; P9016; P9040; 86905-90

== ENCOUNTER 2018-05-17 09:52 | Emergency (ER) | payer OTHER, BC ==
[2018-05-17 10:11] VITALS: BP 144/86
--- NOTE | 2018-05-17 10:29 | EDPHY ---
H & P Time Seen by Provider: 05/17/18 10:08 HPI/ROS: HPI Anxiety. Jitters. 72-year-old female by ambulance from up stairs on Labor delivery. This patient has a history of myelodysplastic syndrome and pancytopenia. Her oncologist is Dr. España. She was upstairs in Labor and delivery to receive a transfusion. Her hemoglobin is currently 7. She was placed on an appetite enhancing steroid by Dr. España last Monday. She reports that this kicked in on . She reports that a known side effect of this medication is the jitters. She reports that she was seen in our emergency department on Monday for anxiety and jitters. She was given Ativan at that time and this made things worse. She reports that since last weekend she has had anxiety in the jitters on and off. She was experiencing the same symptoms up in Labor and delivery this morning and was sent down to the emergency department for evaluation because of this. She reports she does have some shortness of breath associated with her anxiety but this resolves when she calms down. She has no other complaint. She is declining any anxiolytics medication. I discussed Valium with her but she does not want to take this. ROS: Constitutional: No fever, no chills. As above. Respiratory: No cough. No shortness of breath. Cardiac: No chest pain, no palpitations. Gastrointestinal: No abdominal pain, no vomiting, no diarrhea. Skin: No rashes. Neurological: No focal weakness or altered sensation. Past medical history: Pancytopenia, myelodysplastic syndrome, hypertension, Lyme disease, arthritis, hypothyroidism. Social history: Nonsmoker. She is here with her . Physical Exam: General Appearance: Alert, mildly anxious. Pale in appearance. This patient is responding to questions appropriately and in full sentences. This patient appears well-hydrated and well-nourished. No stridor. No voice changes. Eyes: Pupils equal and round no pallor or injection. No lid edema, erythema or injection. Respiratory: There are no retractions, lungs are clear to auscultation anteriorly with good air movement bilaterally. Cardiovascular: Regular rate and rhythm. No murmur. Gastrointestinal: Obese habitus. Abdomen is soft and nontender, no masses, bowel sounds normal. No focal tenderness at McBurney's point. No Galindo sign. Neurological: Motor sensory function is grossly intact. Cranial nerves are normal. Skin: Warm and dry, no rashes. Musculoskeletal: Neck is supple and nontender. Extremities are symmetrical. All joints range without pain or impingement. Psychiatric: No agitation. No depression. Database: EKG: Imaging: Procedures: Emergency department course: Triage vital signs reviewed. I feel that CHF exacerbation, pulmonary embolism, pneumonia are all unlikely. I feel her presentation is secondary to an anxiety reaction as noted above. She feels comfortable going back up stairs for her transfusion. I do not feel that any further emergency department workup or evaluation is required. She is in agreement. Follow-up and return to emergency department precautions discussed with her. All of her questions were answered. She was discharged from the emergency department in good condition with her . She was returned back to Labor and delivery by wheelchair for her transfusion. Differential Diagnosis: The differential diagnosis on this patient includes but is not limited to medication reaction, panic attack, anxiety reaction. Pulmonary embolism, CHF, pneumonia, pneumothorax, anaphylaxis unlikely. This represents a partial list of diagnoses considered. These considerations are based on history, physical exam, past history, reassessment and diagnostic testing. Smoking Status: Never smoked Constitutional: Initial Vital Signs Temperature (C) 36.7 C 05/17/18 09:58 Heart Rate 101 H 05/17/18 09:58 Respiratory Rate 30 H 05/17/18 09:58 O2 Sat (%) 99 05/17/18 09:58 O2 Delivery Mode Room Air Allergies/Adverse Reactions: Iodinated Contrast- Oral and IV Dye Allergy (Severe, Verified 05/17/18 09:57) Anaphylaxis penicillin V potassium [From Pen-Vee K] Allergy (Severe, Verified 05/17/18 09:57 ) ANAPHYLACTIC REACTION lisinopril Allergy (Intermediate, Verified 05/17/18 09:57) COUGH animal dander Allergy (Verified 05/17/18 09:57) Home Medications: Medication Instructions Recorded Atorvastatin Calcium [Lipitor 40 40 mg PO HS 03/01/18 mg (*)] Valsartan [Diovan] 160 mg PO HS 03/01/18 Zofran 05/14/18 Departure - Departure Disposition: Home, Routine, Self-Care Clinical Impression: Anxiety reaction Condition: Good Instructions: Anxiety (ED) Additional Instructions: Read and follow provided instructions. Follow-up with Dr. España, consider discontinuing appetite and had answer medication. Return to Labor and delivery for you're transfusion as scheduled. Return to the emergency department for worsening symptoms or other serious concerns. Referrals: Hima Whittington, [Primary Care Provider] - As per Instructions
== END 2018-05-17 11:15 | disposition home or self-care (01) ==
DX: F41.1 Generalized anxiety disorder (principal); D46.9 Myelodysplastic syndrome, unspecified; D61.818 Other pancytopenia; I10 Essential (primary) hypertension; E03.9 Hypothyroidism, unspecified

== ENCOUNTER 2018-05-31 10:36 | Inpatient (IN) | payer OTHER, BC ==
--- NOTE | 2018-05-31 11:09 | EDPHY ---
HPI/HX/ROS/PE/MDM Narrative: CHIEF COMPLAINT: Weakness, dizziness HPI: This patient is a 72 y/o female with history of myelodysplastic syndrome diagnosed in 02/2018. She was recently admitted 05/21/18 for dehydration and c- difficile. Since discharge on 05/24, she has had worsening weakness and dizziness. Today, these symptoms weer particularly severe and she fell while walking with her walker. Her witnessed the fall and they both deny any injuries, however it was difficult to get the patient up due to her weakness. The patient reports her diarrhea stopped about three days ago. Her at bedside notes that she has not been eating adequately recently and is quite concerned regarding this. The patient denies fever or pain. No cough, vomiting, urinary complaints, or other associated symptoms. REVIEW OF SYSTEMS: A comprehensive 10 system review of systems is otherwise negative aside from elements mentioned in the history of present illness and medical decision making. PMH: Myelodysplastic syndrome, C-difficile, hypertension, Lyme disease SOCIAL HISTORY: . at bedside. Former smoker. No alcohol or illicit drug use. PHYSICAL EXAM: General:Pale-appearing. Obese. Patient is alert, in no acute distress. ENT:Eyes are normal to inspection. ENT inspection normal. Neck: Normal inspection. Full range of motion. Respiratory:No respiratory distress. Breath sounds normal bilaterally. Cardiovascular: Regular rate and rhythm. Strong peripheral pulses. Normal cap refill. Abdomen:The abdomen is nontender to palpation. There are no peritoneal signs. There are normal bowel sounds. Back: Normal to inspection. No tenderness to palpation. Skin: Normal color. No rash. Warm and dry. Extremities: Normal appearance. Full range of motion. Neuro: Oriented x3. Normal motor function. Normal sensory function. ED Course: 72 y/o female with history of MDS and recent admission for dehydration and c- difficile presents with weakness, dizziness. Plan for labs including CBC, chemistries. Plan to administer 1L IV NS for dehydration relief. 11:26 Notified by [facility] of critical lab value: Platelet count is low at 7. WBC low at 1,500. Hct low at 23. 12:45 Reassessed patient. Plan to admit for dehydration, failure to thrive. 12:[address] Spoke with [address]ist service. Dr. Cerda accepts admission for the above. MDM: This patient presents with severe weakness in the setting of pancytopenia. There are no signs of severe sepsis, pneumonia, ACS, trauma. - Data Points Laboratory Results: Laboratory Results 05/31/18 11:11 05/31/18 11:11 05/31/18 05/31/18 05/31/18 11:11 11:11 11:11 WBC 1.54 10^3/uL L 10^3/uL (3.80-9.50) RBC 2.73 10^6/uL L 10^6/uL (4.18-5.33) Hgb 8.1 g/dL L g/dL (12.6-16.3) Hct 23.5 % L % (38.0-47.0) MCV 86.1 fL fL (81.5-99.8) MCH 29.7 pg pg (27.9-34.1) MCHC 34.5 g/dL g/dL (32.4-36.7) RDW 15.0 % % (11.5-15.2) Plt Count 7 10^3/uL L* 10^3/uL (150-400) MPV 11.8 fL H fL (8.7-11.7) Neut % (Auto) Not Reported Lymph % (Auto) Not Reported Loving % (Auto) Not Reported Eos % (Auto) Not Reported Baso % (Auto) Not Reported Nucleat RBC Rel Count Not Reported Absolute Neuts (auto) Not Reported Absolute Lymphs (auto) Not Reported Absolute Monos (auto) Not Reported Absolute Eos (auto) Not Reported Absolute Basos (auto) Not Reported Absolute Nucleated RBC Not Reported Immature Gran % Not Reported Seg Neutrophils % 51.1 % % Band Neutrophils % 4.2 % % Lymphocytes % 40.6 % % Monocytes % 3.1 % % Eosinophils % 0.0 % % Basophils % 0.0 % % Blast Cells % 1.0 % % Immature Gran # Not Reported Absolute Seg Neuts 0.79 10^/uL L 10^/uL (1.70-6.50) Absolute Band Neuts 0.06 10^3/uL 10^3/uL (0.00-0.70) Absolute Lymphocytes 0.63 10^3/uL L 10^3/uL (1.00-3.00) Absolute Monocytes 0.05 10^3/uL L 10^3/uL (0.30-0.80) Absolute Eosinophils 0.00 10^3/uL L 10^3/uL (0.03-0.40) Absolute Basophils 0.00 10^3/uL L 10^3/uL (0.02-0.10) Nucleated RBCs 11.5 /100 WBC H /100 WBC (0-0) Absolute Blast Cells 0.02 10^3/uL H 10^3/uL (0.00-0.00) Platelet Estimate DECREASED L (ADEQ) Smear Review By Pending Sodium 136 mEq/L mEq/L (135-145) Potassium 3.5 mEq/L mEq/L (3.3-5.0) Chloride 99 mEq/L mEq/L (97-110) Carbon Dioxide 24 mEq/l mEq/l (22-31) Anion Gap 13 mEq/L mEq/L (8-16) BUN 18 mg/dL mg/dL (7-23) Creatinine 0.9 mg/dL mg/dL (0.6-1.0) Estimated GFR > 60 Glucose 121 mg/dL H mg/dL (70-100) Calcium 8.5 mg/dL mg/dL (8.5-10.4) Magnesium 1.5 mg/dL L mg/dL (1.6-2.3) Medications Given: Potassium Chloride/Sodium Chloride (Ns W/ 20 Kcl/L) 1,000 mls @ 75 mls/hr IV CONT CASSANDRA Stop: 11/27/18 13:59 Last Admin: 05/31/18 14:25 Dose: 1,000 mls Discontinued Medications Sodium Chloride (Ns) 1,000 mls @ 0 mls/hr IV EDNOW ONE; Wide Open PRN Reason: Protocol Stop: 05/31/18 11:15 Last Admin: 05/31/18 11:29 Dose: 1,000 mls General Time Seen by Provider: 05/31/18 10:37 Initial Vital Signs: Initial Vital Signs Temperature (C) 36.4 C 05/31/18 10:36 Heart Rate 101 H 05/31/18 10:36 Respiratory Rate 20 05/31/18 10:36 Blood Pressure 79/61 L 05/31/18 10:36 O2 Sat (%) 88 L 05/31/18 10:36 O2 Delivery Mode Nasal Cannula O2 (L/minute) 2 Allergies/Adverse Reactions: Iodinated Contrast- Oral and IV Dye Allergy (Severe, Verified 05/31/18 10:46) Anaphylaxis penicillin V potassium [From Pen-Vee K] Allergy (Severe, Verified 05/31/18 10:46 ) ANAPHYLACTIC REACTION lisinopril Allergy (Intermediate, Verified 05/31/18 10:46) COUGH animal dander Allergy (Verified 05/31/18 10:46) dexamethasone Allergy (Verified 05/31/18 10:46) Other-Enter Comments lorazepam [From Ativan] Allergy (Verified 05/31/18 10:46) Home Medications: Medication Instructions Recorded Atorvastatin Calcium [Lipitor 40 40 mg PO HS 05/21/18 mg (*)] Herbals/Supplements -Info Only 1 ea PO DAILY 05/21/18 Ondansetron Odt [Zofran Odt 4 mg 4 mg PO Q2D@92005/21/18 (*)] Ondansetron Odt [Zofran Odt 4 mg 4 mg PO Q2D@05/21/18 (*)] Prochlorperazine Maleate 10 mg PO Q2D@92005/21/18 [Compazine 10mg (*)] Prochlorperazine Maleate 10 mg PO Q2D@05/21/18 [Compazine 10mg (*)] Vancomycin [Vancomycin (*)] 125 mg PO Q6 #40 cap 05/24/18 Cholecalciferol Vit D3 [Vitamin D3 10,000 units PO SHEPHERD 05/31/18 2000 units tab (OTC)] Departure - Departure Disposition: [facility] Clinical Impression: Dehydration, Failure to thrive in adult Condition: Fair Report Scribed for: Keith Thomas Report Scribed by: Isi Read Date of Report: 05/31/18 Time of Report: 12:30
[2018-05-31] MEDS ORDERED: NS 1,000 ML IV ONE (11:14)
[2018-05-31 12:05] LABS: PLATELET COUNT 7 10^3/uL (150-400)
[2018-05-31] MEDS ORDERED: ONDANSETRON DISINTEGRATING 4 MG TAB PO PRN (13:59)
[2018-05-31] MEDS ORDERED: ONDANSETRON 4 MG/2 ML VIAL IVP PRN (13:59)
[2018-05-31] MEDS ORDERED: ACETAMINOPHEN 325 MG TAB PO PRN (13:59)
[2018-05-31] MEDS ORDERED: NS W/ 20 KCl/L 1,000 ML IV SCH (14:00)
--- NOTE | 2018-05-31 14:07 | PDGENHP ---
History and Physical - Chief Complaint weakness - History of Present Illness This is a 72 yo F with hx of MDS (diagnosed in February 2018) and with recent admission for dehydration and C-Diff. Since leaving the hospital she has been feeling progressively weaker with decreased oral intake. Diarrhea has improved significantly. She has not had fevers. She does not have cough, SOB, sore throat. She also does not have dysuria, increased urinary frequency, pelvic/ bladder spasms. She fell while walking with her walker today. PMH: C-difficile, MDS, HTN, Lyme disease SOCIAL HISTORY: FMHx: non contributory History Information - Allergies/Home Medication List Allergies/Adverse Reactions: Iodinated Contrast- Oral and IV Dye Allergy (Severe, Verified 05/31/18 10:46) Anaphylaxis penicillin V potassium [From Pen-Vee K] Allergy (Severe, Verified 05/31/18 10:46 ) ANAPHYLACTIC REACTION lisinopril Allergy (Intermediate, Verified 05/31/18 10:46) COUGH animal dander Allergy (Verified 05/31/18 10:46) dexamethasone Allergy (Verified 05/31/18 10:46) Other-Enter Comments lorazepam [From Ativan] Allergy (Verified 05/31/18 10:46) Home Medications: Atorvastatin Calcium [Lipitor 40 mg (*)] 40 mg PO HS 05/21/18 [Last Taken ] Herbals/Supplements -Info Only 1 ea PO DAILY 05/21/18 [Last Taken Unknown] Ondansetron Odt [Zofran Odt 4 mg (*)] 4 mg PO Q2D@92005/21/18 [Last Taken ] Ondansetron Odt [Zofran Odt 4 mg (*)] 4 mg PO Q2D@05/21/18 [Last Taken ] Prochlorperazine Maleate [Compazine 10mg (*)] 10 mg PO Q2D@92005/21/18 [Last Taken 05/30/18] Prochlorperazine Maleate [Compazine 10mg (*)] 10 mg PO Q2D@05/21/18 [Last Taken 05/29/18] Valsartan [Diovan (*)] 160 mg PO HS 05/21/18 [Last Taken 05/30/18] amLODIPine BESYLATE [Norvasc 10 mg (*)] 10 mg PO HS 05/21/18 [Last Taken ] Cholecalciferol Vit D3 [Vitamin D3 2000 units tab (OTC)] 10,000 units PO SHEPHERD [Last Taken 05/27/18] I have personally reviewed and updated: medical history, social history - Social History Smoking Status: Never smoked Review of Systems Review of Systems: ROS: 10pt was reviewed & negative except for what was stated in HPI & below Physical Exam Physical Exam: Temp Pulse Resp BP Pulse Ox 36.3 C 89 18 137/53 H 97 05/31/18 13:34 05/31/18 13:34 05/31/18 13:28 05/31/18 13:34 05/31/18 13:34 O2 (L/minute) 2 Constitutional: chronically ill appearing Eyes: PERRL Ears, Nose, Mouth, Throat: dry mucous membranes Cardiovascular: regular rate and rhythym, No edema Respiratory: no respiratory distress, no rales or rhonchi, clear to auscultation Gastrointestinal: normoactive bowel sounds Skin: warm Musculoskeletal: generalized weakness Neurologic: AAOx3 Psychiatric: interacting appropriately, not anxious, not encephalopathic Lymph, Heme, Immunologic: No petechiae Lab Data & Imaging Review 05/31/18 11:11 05/31/18 11:11 WBC 1.54 10^3/uL (3.80-9.50) L 05/31/18 11:11 RBC 2.73 10^6/uL (4.18-5.33) L 05/31/18 11:11 Hgb 8.1 g/dL (12.6-16.3) L 05/31/18 11:11 Hct 23.5 % (38.0-47.0) L 05/31/18 11:11 MCV 86.1 fL (81.5-99.8) 05/31/18 11:11 MCH 29.7 pg (27.9-34.1) 05/31/18 11:11 MCHC 34.5 g/dL (32.4-36.7) 05/31/18 11:11 RDW 15.0 % (11.5-15.2) 05/31/18 11:11 Plt Count 7 10^3/uL (150-400) L* 05/31/18 11:11 MPV 11.8 fL (8.7-11.7) H 05/31/18 11:11 Neut % (Auto) Not Reported 05/31/18 11:11 Lymph % (Auto) Not Reported 05/31/18 11:11 Stanley % (Auto) Not Reported 05/31/18 11:11 Eos % (Auto) Not Reported 05/31/18 11:11 Baso % (Auto) Not Reported 05/31/18 11:11 Nucleat RBC Rel Count Not Reported 05/31/18 11:11 Absolute Neuts (auto) Not Reported 05/31/18 11:11 Absolute Lymphs (auto) Not Reported 05/31/18 11:11 Absolute Monos (auto) Not Reported 05/31/18 11:11 Absolute Eos (auto) Not Reported 05/31/18 11:11 Absolute Basos (auto) Not Reported 05/31/18 11:11 Absolute Nucleated RBC Not Reported 05/31/18 11:11 Immature Gran % Not Reported 05/31/18 11:11 Seg Neutrophils % 51.1 % 05/31/18 11:11 Band Neutrophils % 4.2 % 05/31/18 11:11 Lymphocytes % 40.6 % 05/31/18 11:11 Monocytes % 3.1 % 05/31/18 11:11 Eosinophils % 0.0 % 05/31/18 11:11 Basophils % 0.0 % 05/31/18 11:11 Blast Cells % 1.0 % 05/31/18 11:11 Immature Gran # Not Reported 05/31/18 11:11 Absolute Seg Neuts 0.79 10^/uL (1.70-6.50) L 05/31/18 11:11 Absolute Band Neuts 0.06 10^3/uL (0.00-0.70) 05/31/18 11:11 Absolute Lymphocytes 0.63 10^3/uL (1.00-3.00) L 05/31/18 11:11 Absolute Monocytes 0.05 10^3/uL (0.30-0.80) L 05/31/18 11:11 Absolute Eosinophils 0.00 10^3/uL (0.03-0.40) L 05/31/18 11:11 Absolute Basophils 0.00 10^3/uL (0.02-0.10) L 05/31/18 11:11 Nucleated RBCs 11.5 /100 WBC (0-0) H 05/31/18 11:11 Absolute Blast Cells 0.02 10^3/uL (0.00-0.00) H 05/31/18 11:11 Platelet Estimate DECREASED (ADEQ) L 05/31/18 11:11 Sodium 136 mEq/L (135-145) 05/31/18 11:11 Potassium 3.5 mEq/L (3.3-5.0) 05/31/18 11:11 Chloride 99 mEq/L (97-110) 05/31/18 11:11 Carbon Dioxide 24 mEq/l (22-31) 05/31/18 11:11 Anion Gap 13 mEq/L (8-16) 05/31/18 11:11 BUN 18 mg/dL (7-23) 05/31/18 11:11 Creatinine 0.9 mg/dL (0.6-1.0) 05/31/18 11:11 Estimated GFR > 60 05/31/18 11:11 Glucose 121 mg/dL (70-100) H 05/31/18 11:11 Calcium 8.5 mg/dL (8.5-10.4) 05/31/18 11:11 Assessment & Plan Assessment: #Dehydration #Hypotension, much improved after IVF -remains afebrile -hold home BP meds #MDS #Pancytopenia -Neutropenia, essentially unchanged since last admission -thrombocytopenia: no e/o of active bleeding. no significant petechiae or bruising -hold off on platelet transfusion for now -ONC to see. Will discuss -Anemia #Gen Weakness, etiology is likely multifactorial #C-Diff: cont with Vancomycin to complete treatment plan #Nausea: provide antiemetics Plan: I dont see a clear indication for antibiotics at this time. No resp or urinary sx's. Has been afebrile. Will hold off on abx for now. Low threshold to start cont with IVF, will provide additional in addition to previously administered per above will d/w Oncology
--- NOTE | 2018-05-31 14:08 | ASMTCMCOM ---
CM Note CM Note Notes: Chart reviewed. 72 year old female admitted via ED s/p fall. Multiple recent admissions. Diagnosed with myelodyplastic syndrome. Needs TBD at this time. CM to follow. Plan: TBD Date Signed: 05/31/2018 01:45 PM Electronically Signed By:Donna Leslie RN
[2018-05-31] MEDS ORDERED: MAGNESIUM SULF 2 GM/WATER 50 ML IV ONE (15:44)
[2018-05-31] MEDS: VANCOMYCIN 125 MG/2.5 ML UDL PO SCH ×2 (17:25→23:45)
[2018-05-31] MEDS: ATORVASTATIN CALCIUM 40 MG TAB PO SCH (20:34)
[2018-06-01 05:01] LABS: PLATELET COUNT 5 10^3/uL (150-400)
[2018-06-01] MEDS: VANCOMYCIN 125 MG/2.5 ML UDL PO SCH ×3 (06:25→17:24)
--- NOTE | 2018-06-01 09:15 | PDCONSULT ---
Lawn Service Manager Note: HEMATOLOGY/ONCOLOGY CONSULTATION NOTE Reason for consultation: Myelodysplastic syndrome Referring provider: Kodak Cerda History of present illness: Zaina is a very pleasant 72-year-old female with a diagnosis of very high risk myelodysplastic syndrome who [facility]. 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 She had transfusion requirements with regards to platelets and PRBCs. She also was significantly neutropenic at time of diagnosis. She initiated therapy with Vidaza in March of 2018. Her therapy has been complicated by C diff colitis alongside frequent presentations for IV hydration. She was admitted yesterday as she fell in the hallway of her home. Her partner the lives with her attempted to lift her up but was unsuccessful. She was admitted here and was noted to be anemic and thrombocytopenic. She also has had a mild oxygen requirement. She has no fevers or chills. She previously had diarrhea when she was diagnosed with C diff colitis. The diarrhea has since resolved. She has no shortness of breath cough or chest pain. She has no bleeding symptoms. She has no other complaints today. Past medical history: Mild dysplastic syndrome Hypertension Asthma Morbid obesity Hyperthyroidism Past surgical history: Tonsillectomy Achilles tendon repair Family history: No family history of malignancies. Social history: She previously was an educator. She lives with a partner care [facility]. She has no alcohol or drug use. Allergies: Iodine, penicillin Review of systems: A 12 point review of systems was obtained and was otherwise negative. Generic Name Dose Route Start Last Admin Trade Name Freq PRN Reason Stop Dose Admin Atorvastatin Calcium 40 mg 05/31/18 21:00 05/31/18 20:34 Lipitor PO 11/27/18 20:59 Not Given HS CASSANDRA Potassium Chloride/Sodium Chloride 1,000 mls @ 75 mls/hr 05/31/18 14:00 05/31 14:25 Ns W/ 20 Kcl/L IV 11/27/18 13:59 1,000 mls CONT CASSANDRA Administration Ondansetron HCl 4 mg 05/31/18 13:59 05/31/18 20:33 Zofran Odt PO 11/27/18 13:58 4 mg Q4HRS PRN Administration Nausea/Vomiting, Use 1st Vancomycin HCl 125 mg 05/31/18 18:00 06/01/18 06:25 Vancocin Oral Liquid PO 06/30/18 17:59 125 mg Q6 CASSANDRA Administration Discontinued Medications Generic Name Dose Route Start Last Admin Trade Name Naomie PRN Reason Stop Dose Admin Sodium Chloride 1,000 mls @ 0 mls/hr 05/31/18 11:14 05/31/18 11:29 Ns IV 05/31/18 11:15 1,000 mls EDNOW ONE Administration Protocol Wide Open Magnesium Sulfate 50 mls @ 50 mls/hr 05/31/18 15:44 05/31/18 15:57 Magnesium Sulf 2 Gm (Premix) IV 05/31/18 16:43 50 mls ONCE ONE Administration Physical examination: Temp Pulse Resp BP Pulse Ox 37.0 C 86 16 104/56 L 95 06/01/18 03:29 06/01/18 03:29 06/01/18 03:29 06/01/18 03:29 06/01/18 03:29 O2 (L/minute) 2 General: Obese female appears in no acute distress lying comfortably. HEENT: Pupils equal round reactive to light, extraocular movements are intact, nasal cannula is in place, normocephalic atraumatic Pulmonary: Clear to auscultation bilaterally Cardiovascular: Regular rate and rhythm no murmurs gallops or rubs Abdomen: Soft nontender nondistended bowel sounds are present Extremities: 1+ edema bilateral lower extremities are equal. Psych: Appropriate affect Neuro: Moving all extremities Skin: No skin lesions Lymph: No lymphadenopathy LABORATORY 06/01/18 06/01/18 06/01/18 08:25 04:00 04:00 WBC 1.37 10^3/uL L 10^3/uL (3.80-9.50) RBC 2.24 10^6/uL L 10^6/uL (4.18-5.33) Hgb 6.7 g/dL L g/dL (12.6-16.3) Hct 19.4 % L % (38.0-47.0) MCV 86.6 fL fL (81.5-99.8) MCH 29.9 pg pg (27.9-34.1) MCHC 34.5 g/dL g/dL (32.4-36.7) RDW 15.2 % % (11.5-15.2) Plt Count 5 10^3/uL L* 10^3/uL (150-400) MPV TNP Neut % (Auto) 36.5 % L % (39.3-74.2) Lymph % (Auto) 59.9 % H % (15.0-45.0) [place] % (Auto) 2.9 % L % (4.5-13.0) Eos % (Auto) 0.0 % L % (0.6-7.6) Baso % (Auto) 0.0 % L % (0.3-1.7) Nucleat RBC Rel Count 8.0 % H % (0.0-0.2) Absolute Neuts (auto) 0.50 10^3/uL L 10^3/uL (1.70-6.50) Absolute Lymphs (auto) 0.82 10^3/uL L 10^3/uL (1.00-3.00) Absolute Monos (auto) 0.04 10^3/uL L 10^3/uL (0.30-0.80) Absolute Eos (auto) 0.00 10^3/uL L 10^3/uL (0.03-0.40) Absolute Basos (auto) 0.00 10^3/uL L 10^3/uL (0.02-0.10) Absolute Nucleated RBC 0.11 10^3/uL H 10^3/uL (0-0.01) Immature Gran % 0.7 % % (0.0-1.1) Seg Neutrophils % Band Neutrophils % Lymphocytes % Monocytes % Eosinophils % Basophils % Blast Cells % Immature Gran # 0.01 10^3/uL 10^3/uL (0.00-0.10) Absolute Seg Neuts Absolute Band Neuts Absolute Lymphocytes Absolute Monocytes Absolute Eosinophils Absolute Basophils Nucleated RBCs RBC/WBC/PLT Morphology TNP Absolute Blast Cells Platelet Estimate DECREASED L (ADEQ) Smear Review By Pending Sodium 136 mEq/L mEq/L (135-145) Potassium 3.6 mEq/L mEq/L (3.3-5.0) Chloride 104 mEq/L mEq/L (97-110) Carbon Dioxide 22 mEq/l mEq/l (22-31) Anion Gap 10 mEq/L mEq/L (8-16) BUN 18 mg/dL mg/dL (7-23) Creatinine 0.6 mg/dL mg/dL (0.6-1.0) Estimated GFR > 60 Glucose 81 mg/dL mg/dL (70-100) Calcium 7.9 mg/dL L mg/dL (8.5-10.4) Magnesium 2.1 mg/dL mg/dL (1.6-2.3) Patient ABO/Rh Pending Antibody Screen Pending Enhanced Crossmatch See Detail Platelet Orders Status Pending 05/31/18 05/31/18 05/31/18 11:11 11:11 11:11 WBC 1.54 10^3/uL L 10^3/uL (3.80-9.50) RBC 2.73 10^6/uL L 10^6/uL (4.18-5.33) Hgb 8.1 g/dL L g/dL (12.6-16.3) Hct 23.5 % L % (38.0-47.0) MCV 86.1 fL fL (81.5-99.8) MCH 29.7 pg pg (27.9-34.1) MCHC 34.5 g/dL g/dL (32.4-36.7) RDW 15.0 % % (11.5-15.2) Plt Count 7 10^3/uL L* 10^3/uL (150-400) MPV 11.8 fL H fL (8.7-11.7) Neut % (Auto) Not Reported Lymph % (Auto) Not Reported [place] % (Auto) Not Reported Eos % (Auto) Not Reported Baso % (Auto) Not Reported Nucleat RBC Rel Count Not Reported Absolute Neuts (auto) Not Reported Absolute Lymphs (auto) Not Reported Absolute Monos (auto) Not Reported Absolute Eos (auto) Not Reported Absolute Basos (auto) Not Reported Absolute Nucleated RBC Not Reported Immature Gran % Not Reported Seg Neutrophils % 51.1 % % Band Neutrophils % 4.2 % % Lymphocytes % 40.6 % % Monocytes % 3.1 % % Eosinophils % 0.0 % % Basophils % 0.0 % % Blast Cells % 1.0 % % Immature Gran # Not Reported Absolute Seg Neuts 0.79 10^/uL L 10^/uL (1.70-6.50) Absolute Band Neuts 0.06 10^3/uL 10^3/uL (0.00-0.70) Absolute Lymphocytes 0.63 10^3/uL L 10^3/uL (1.00-3.00) Absolute Monocytes 0.05 10^3/uL L 10^3/uL (0.30-0.80) Absolute Eosinophils 0.00 10^3/uL L 10^3/uL (0.03-0.40) Absolute Basophils 0.00 10^3/uL L 10^3/uL (0.02-0.10) Nucleated RBCs 11.5 /100 WBC H /100 WBC (0-0) RBC/WBC/PLT Morphology Absolute Blast Cells 0.02 10^3/uL H 10^3/uL (0.00-0.00) Platelet Estimate DECREASED L (ADEQ) Smear Review By So TOLBERT MD Sodium 136 mEq/L mEq/L (135-145) Potassium 3.5 mEq/L mEq/L (3.3-5.0) Chloride 99 mEq/L mEq/L (97-110) Carbon Dioxide 24 mEq/l mEq/l (22-31) Anion Gap 13 mEq/L mEq/L (8-16) BUN 18 mg/dL mg/dL (7-23) Creatinine 0.9 mg/dL mg/dL (0.6-1.0) Estimated GFR > 60 Glucose 121 mg/dL H mg/dL (70-100) Calcium 8.5 mg/dL mg/dL (8.5-10.4) Magnesium 1.5 mg/dL L mg/dL (1.6-2.3) Patient ABO/Rh Antibody Screen Enhanced Crossmatch Platelet Orders Status Assessment and plan: 1. Very high risk myelodysplastic syndrome: She currently has been receiving azacitidine since March 2018. She has another cycle due early next week. She is followed by Dr. Stanislaw España. 2. Anemia/thrombocytopenia: This is secondary to her myelodysplastic syndrome. I have recommended transfusion with irradiated blood products today. 3. Dehydration: She has received IV fluids and appears more hydrated today.
--- NOTE | 2018-06-01 09:54 | HOSPPROG ---
Hospitalist Progress Note Assessment/Plan: #Dehydration, improving #Hypotension, much improved after IVF -remains afebrile -hold home BP meds #MDS #Pancytopenia -Neutropenia, essentially unchanged since last admission -thrombocytopenia: no e/o of active bleeding. no significant petechiae or bruising -will give 1 unit of platelets today -Anemia: will transfuse 1 unit today #Gen Weakness, etiology is likely multifactorial -PT/OT #C-Diff: cont with Vancomycin to complete 14 day treatment plan #Nausea: provide antiemetics Plan: per above will also get a dietary consult change to inpatient wean off O2 if able to D/w Onc Subjective: no cp or sob. no cough. afebrile Objective: Vital Signs Temp Pulse Resp BP Pulse Ox 37.0 C 86 16 104/56 L 95 06/01/18 03:29 06/01/18 03:29 06/01/18 03:29 06/01/18 03:29 06/01/18 03:29 Laboratory Results 06/01/18 04:00 06/01/18 04:00 05/31/18 06/01/18 06/02/18 05:59 05:59 05:59 Intake Total 2640 Balance 2640 - Physical Exam Constitutional: no apparent distress, chronically ill appearing Eyes: PERRL, EOMI Ears, Nose, Mouth, Throat: moist mucous membranes Cardiovascular: regular rate and rhythym Respiratory: no respiratory distress, no rales or rhonchi, clear to auscultation Gastrointestinal: normoactive bowel sounds, soft, non-tender abdomen Skin: warm Neurologic: AAOx3 Psychiatric: interacting appropriately, not anxious, not encephalopathic ICD10 Worksheet Patient Problems: Problems Problem Status Onset Dehydration Acute Failure to thrive in adult Acute Diarrhea Acute Exertional dyspnea Acute Pancytopenia Acute
--- NOTE | 2018-06-01 10:35 | PDMN ---
Medical Necessity Medical necessity: [facility] M123 Dehydration, M170 Gastroenteritis and MGHEM Hematology GR72 y/o w/ very high risk Myelodysplastic Syndrome, undergoing azacitidine tx, pt c/o dehydration secondary diarrhea, hypotensive 79/61, tachy >100, O2sat 88 RA, O2 started, +Cdiff, pancytopenia noted, generalized weakness , oncology consulted, switch to IP status per MD order 06/01/18 @ 0951 as pt cont on IV fluids, IV vanco for Cdiff management, antiemetics, tranfusions to be given today for decreased labs (plt 5k, H/H 6.7/19.4). Pt on isolation precautions.
--- NOTE | 2018-06-01 16:02 | ASMTCMCOM ---
CM Note CM Note Notes: Chart reviewed. Met with patient to review plan of care. Discussed possibility of [facility] to offer additional therapy and support as per therapy patient has some deficits. She is dehydrated, sustained a fall at home and was unable to get up. Patient declines needs at home stating "we are good" "we have support". Her partner is not in the room at this time. CM will continue to follow in case changes occur. Plan: TBD Date Signed: 06/01/2018 03:57 PM Electronically Signed By:Donna Lelsie RN
[2018-06-01] MEDS ORDERED: PROCHLORPERAZINE MALEATE 10 MG TAB PO SCH (18:00)
[2018-06-01] MEDS: ATORVASTATIN CALCIUM 40 MG TAB PO SCH (21:04)
[2018-06-02] MEDS: VANCOMYCIN 125 MG/2.5 ML UDL PO SCH ×3 (00:13→11:50)
[2018-06-02 05:20] LABS: PLATELET COUNT 28 10^3/uL (150-400)
[2018-06-02 07:36] VITALS: BP 122/64
[2018-06-02] MEDS ORDERED: PROCHLORPERAZINE MALEATE 10 MG TAB PO SCH ×2 (09:21→12:00)
--- NOTE | 2018-06-02 11:41 | SOAPPROG ---
SOAP Progress Note Assessment/Plan: Assessment: 1) MDS 2) Recent C. Diff 3) Dehydration 4) Chronic pancytopenia secondary to #1 Plan: Feels somewhat better after transfusion and Hydration. Her diarrhea has resolved. She will be d/c home today. I will notify Dr. España of her d/c. He will arrange outpatient follow up to discuss resumption of Vidaza. She will continue Vancomycin. Her questions were answered. Total time = 15 minutes. 06/02/18 11:38 06/02/18 11:41 Objective: Vital Signs Temp Pulse Resp BP Pulse Ox 36.9 C 88 18 122/64 H 92 06/02/18 07:29 06/02/18 07:29 06/02/18 07:29 06/02/18 07:29 06/02/18 11:01 Laboratory Results 06/02/18 04:40 06/01/18 06/02/18 06/03/18 05:59 05:59 05:59 Intake Total 1554 Output Total 2075 Balance -521 Physical Exam - Physical Exam General Appearance: alert, no apparent distress EENT: PERRL/EOMI, normal ENT inspection Abdomen: non-tender, soft Neuro/Psych: alert, normal mood/affect ICD10 Worksheet Patient Problems: Problems Problem Status Onset Dehydration Acute Failure to thrive in adult Acute Diarrhea Acute Exertional dyspnea Acute Pancytopenia Acute
--- NOTE | 2018-06-02 12:15 | ASDISCHSUM ---
Discharge Information Plan Status:Home with No Needs Medically Cleared to Leave:06/02/2018 Discharge Date:06/02/2018 CM D/C Disposition:Home, Routine, Self-Care ADT D/C Disposition:Home, Routine, Self-Care Projected Discharge Date:06/02/2018 Transportation at D/C:Family Discharge Delay Reason: Follow-Up Date:06/02/2018 Discharge Slot: Final Diagnosis: Placement Information Patient Contact Information Contact Name:TORIBIO Relationship:Life Partner Address:[address] City:[place] Alternate Phone: [facility]/Zip Code:[place] [address] Email: Financial Information Financial Class:Medicare Primary Plan Desc:MEDICARE INPATIENT Primary Plan Number:[id number] Secondary Plan Desc:[facility] Secondary Plan Number:[id number] Assessment Information LACE LACE Length of stay for Answers: 1 day current admission Acuity / Level of Answers: Yes Care: Did the patient have an inpatient admission? Comorbidities - select Answers: Any tumor (including all that apply lymphoma or leukemia) Other Notes: korina esqueda # of Emergency department Answers: 1-2 visits in the last 6 months Score: 8 Date Signed: 06/02/2018 12:14 PM Electronically Signed By:RAVINDER Rivera [facility] CM Progress Note CM Note CM Note Notes: Chart reviewed. 72 year old female admitted via ED s/p fall. Multiple recent admissions. Diagnosed with myelodyplastic syndrome. Needs TBD at this time. CM to follow. Plan: TBD Date Signed: 05/31/2018 01:45 PM Electronically Signed By:Donna Leslie RN [facility] CM Progress Note CM Note CM Note Notes: Chart reviewed. Met with patient to review plan of care. Discussed possibility of [facility] to offer additional therapy and support as per therapy patient has some deficits. She is dehydrated, sustained a fall at home and was unable to get up. Patient declines needs at home stating "we are good" "we have support". Her partner is not in the room at this time. CM will continue to follow in case changes occur. Plan: TBD Date Signed: 06/01/2018 03:57 PM Electronically Signed By:Donna Leslie RN Case Management Discharge Plan Note Case Management Discharge Discharge Order Complete? Answers: Yes Patient to Obtain Answers: via Family Medications Transportation Arranged Answers: Family/Friends Family Notified Answers: Yes Discharge Comments Notes: Pt declined home care recommendations however her was concerned this was not a good d/c plan. Discussed with pt and her ; pt continued to be resistant to HC and any other discussion and made it clear she just wanted to leave. Encouraged them to discuss privately when they get home and if they decide to pursue HC, to contact her PCP for HC orders. Pt is discharging home today with no CM needs. Date Signed: 06/02/2018 12:13 PM Electronically Signed By:RAVINDER Rivera Intervention Information Intervention Type:*[place]-Signed Date of Service:06/01/2018 11:29 AM Patient Type:Inpatient Staff Member:Holly Gandhi Hours: Discipline: Severity: Comment:
--- NOTE | 2018-06-02 13:31 | PDDCSUM ---
Discharge Summary Discharge Summary: 72 yo female with MDS admitted with weakness, dehydration, hypotension, and pancytopenia. She did not have e/o infection and abx were not provided. She was admitted. IVF were started. She was transfused 1 unit platelets, 1 unit PRBC. She was offered another unit of PRBC on the day of discharge but she refused. Overall she feels better. She does not have further diarrhea. She will f/u with Oncology in one week #Dehydration #Hypotension, much improved after IVF -remains afebrile -hold home BP meds. Her BP is now normal and she has not needed any BP meds #MDS #Pancytopenia -Neutropenia, essentially unchanged since last admission -thrombocytopenia -Anemia #Gen Weakness, etiology is likely multifactorial. She refused C #C-Diff: cont with Vancomycin to complete 14 day treatment plan #Nausea: provide antiemetics #Hypoxemia: she is on RA Exam: NAD AAOX3 RRR CTA B S/NT/ND NO LE EDEMA MEDS: SEE MED REC F/U: WITH PCP IN ONE WEEK TOTAL TIME SPENT ON D/C IS 35 MINS
[2018-06-03] MEDS ORDERED: CHOLECALCIFEROL VIT D3 2,000 UNITS TAB/CAP PO SCH (14:01)
== END 2018-06-02 12:17 | disposition home or self-care (01) | DRG 812 ==
LOC: EDUNIT# → F1N 13:27 → OBSVTOIN 06-01 09:51
PROVIDERS: ADMIT Family Medicine; ATTEND Family Medicine
PROC: 30233N1 Transfusion of Nonautologous Red Blood Cells into Peripheral Vein, Percutaneous Approach (ICD-10-PCS; principal; 2018-06-01)
PROC: 30233R1 Transfusion of Nonautologous Platelets into Peripheral Vein, Percutaneous Approach (ICD-10-PCS; 2018-06-01)
DX: D46.9 Myelodysplastic syndrome, unspecified (principal); D61.818 Other pancytopenia; E86.0 Dehydration; I95.9 Hypotension, unspecified; B96.89 Other specified bacterial agents as the cause of diseases classified elsewhere; R09.02 Hypoxemia; I10 Essential (primary) hypertension; E03.9 Hypothyroidism, unspecified; E66.01 Morbid (severe) obesity due to excess calories
CPT/HCPCS: 86905-90; 97162-GP; 97166-GO; 97530-GP; 99001-90; G0378; G8978-GP-CK; G8979-GP-CI; G8987-GO-CK; G8988-GO-CJ; J3475; P9016; P9040; P9073

== ENCOUNTER 2018-06-10 18:38 | Inpatient (IN) | payer OTHER, BC ==
--- NOTE | 2018-06-10 18:50 | EDPHY ---
H & P Time Seen by Provider: 06/10/18 18:42 HPI/ROS: CHIEF COMPLAINT: Buttock pain and low back pain HISTORY OF PRESENT ILLNESS: Patient is a 72-year-old female with a history of mild dysplastic syndrome sent here by EMS with a call in from her primary care physician stating the patient is failure to thrive and needs admission for placement. Today she was at home today changing her clothes with the assistance of her when she felt like she was slipping from his grasp and fell to the ground onto her buttock. She denies hitting her head any loss consciousness. She takes no blood thinners. She reports bilateral buttock pain. She attempted to walk afterwards but states she had pain but was able to bear weight on both legs. She denies any new numbness or weakness in her legs. She does deal with chronic hip and bilateral knee pain. She states that she has felt increasingly weak over the last 2-3 weeks after being diagnosed with C difficile colitis 3 weeks ago and then completing a 2 week course of antibiotics which she completed early last week. She denies any nausea vomiting diarrhea currently. She has no fever. She has had little appetite. She also reports she has had chronic low platelets are often times in the single digits she has had multiple transfusions of platelets. Currently she denies any spontaneous bleeding no bleeding with brushing of the teeth or hematuria. REVIEW OF SYSTEMS: Constitutional: No fever, no chills. Eyes: No discharge. ENT: No sore throat. Cardiovascular: No chest pain, no palpitations. Respiratory: No cough, no shortness of breath. Gastrointestinal: No abdominal pain, no vomiting. Genitourinary: No hematuria. Musculoskeletal: No back pain. Skin: No rashes. Neurological: No headache. Smoking Status: Former smoker Physical Exam: General Appearance: Alert and no distress. Morbid obesity Eyes: Pupils equal and round no injection. Respiratory: Chest is nontender, lungs are clear to auscultation. Cardiac: regular rate and rhythm. Gastrointestinal: Abdomen is soft and nontender, no masses, bowel sounds normal. Musculoskeletal: Neck is supple and nontender. Extremities have full range of motion and are nontender. Skin: No rashes or lesions. Constitutional: Initial Vital Signs Temperature (C) 36.6 C 06/10/18 19:02 Heart Rate 101 H 06/10/18 19:02 Respiratory Rate 16 06/10/18 19:02 Blood Pressure 118/53 L 06/10/18 19:02 O2 Sat (%) 96 06/10/18 19:02 O2 Delivery Mode Nasal Cannula O2 (L/minute) 2 Allergies/Adverse Reactions: Iodinated Contrast- Oral and IV Dye Allergy (Severe, Verified 05/31/18 10:46) Anaphylaxis penicillin V potassium [From Pen-Vee K] Allergy (Severe, Verified 05/31/18 10:46 ) ANAPHYLACTIC REACTION lisinopril Allergy (Intermediate, Verified 05/31/18 10:46) COUGH animal dander Allergy (Verified 05/31/18 10:46) dexamethasone Allergy (Verified 05/31/18 10:46) Other-Enter Comments lorazepam [From Ativan] Allergy (Verified 06/10/18 19:43) Other-Enter Comments Home Medications: Medication Instructions Recorded Atorvastatin Calcium [Lipitor 40 40 mg PO HS 05/21/18 mg (*)] Ondansetron Odt [Zofran Odt 4 mg 4 mg PO Q2D@,05/21/18 (*)] Ondansetron Odt [Zofran Odt 4 mg 4 mg PO Q2D@05/21/18 (*)] Prochlorperazine Maleate 10 mg PO Q2D@,05/21/18 [Compazine 10mg (*)] Prochlorperazine Maleate 10 mg PO Q2D@05/21/18 [Compazine 10mg (*)] Valsartan [Diovan] 320 mg PO DAILY 06/10/18 amLODIPine BESYLATE [Norvasc 10 mg 10 mg PO DAILY 06/10/18 (*)] Medical Decision Making - Diagnostics Imaging Results: Imaging Impressions Lumbar Spine CT 06/10/18 18:48 Impression: 1. Negative for fracture.. 2. Severe multilevel degenerative changes are seen, as detailed above, with multilevel canal stenosis noted. Results called and discussed with Juan F Dent PA-C on June 10, 2018 at [address] 06/10/18 18:48 Impression: 1. Pelvis negative for fracture. 2. See above report for additional findings. Results called and discussed with Juan F Dent PA-C on June 10, 2018 at 2021 hours. ED Course/Re-evaluation: 72-year-old female here with ground level fall without acute fracture injury to the lumbar spine or pelvis seen on x-ray. She does have severe degenerative disc disease and lumbar stenosis which she already knows about. There is no evidence of cauda equina per exam or history. Labs revealed a platelet count of 10. Further discussion with the patient she states that this is chronic for her and she ranges between 7 and the low 30s typically. She has no active bleeding so transfusion was deferred the inpatient provider. Differential Diagnosis: Fracture, cauda equina, hip fracture, compression fracture lumbar spine, intracranial bleed - Data Points Laboratory Results: Laboratory Results 06/10/18 19:19 06/10/18 19:19 06/10/18 06/10/18 19:19 19:19 WBC 1.48 10^3/uL L 10^3/uL (3.80-9.50) RBC 2.40 10^6/uL L 10^6/uL (4.18-5.33) Hgb 7.0 g/dL L g/dL (12.6-16.3) Hct 20.5 % L % (38.0-47.0) MCV 85.4 fL fL (81.5-99.8) MCH 29.2 pg pg (27.9-34.1) MCHC 34.1 g/dL g/dL (32.4-36.7) RDW 15.1 % % (11.5-15.2) Plt Count 10 10^3/uL L* 10^3/uL (150-400) Platelet Estimate DECREASED L (ADEQ) Sodium 137 mEq/L mEq/L (135-145) Potassium 3.2 mEq/L L mEq/L (3.3-5.0) Chloride 99 mEq/L mEq/L (97-110) Carbon Dioxide 25 mEq/l mEq/l (22-31) Anion Gap 13 mEq/L mEq/L (8-16) BUN 19 mg/dL mg/dL (7-23) Creatinine 0.7 mg/dL mg/dL (0.6-1.0) Estimated GFR > 60 Glucose 108 mg/dL H mg/dL (70-100) Calcium 8.2 mg/dL L mg/dL (8.5-10.4) Departure - Departure Disposition: [facility]
[2018-06-10 19:35] LABS: PLATELET COUNT 10 10^3/uL (150-400)
[2018-06-10] MEDS ORDERED: ONDANSETRON DISINTEGRATING 4 MG TAB PO PRN (22:28)
[2018-06-10] MEDS ORDERED: ONDANSETRON 4 MG/2 ML VIAL IVP PRN (22:28)
[2018-06-10] MEDS ORDERED: PROCHLORPERAZINE MALEATE 10 MG TAB PO PRN (22:45)
[2018-06-10] MEDS: ACETAMINOPHEN 325 MG TAB PO PRN (22:52)
[2018-06-11] MEDS: NS W/ 20 KCl/L 1,000 ML IV SCH ×2 (00:20→11:41)
--- NOTE | 2018-06-11 00:40 | PDGENHP ---
History and Physical - Chief Complaint Weakness - History of Present Illness 72 yo F w/ hx of MDS, related pancytopenia, and HTN presents with generalized weakness. The patient was being helped while dressing today when she felt weak and slowly lowered to the ground. She denies significant trauma or LOC. She tells me generalized weakness has been present for much of the last month. She received chemotherapy in April and has felt poorly since. She was diagnosed with C. Diff 3 weeks ago and has finished a 2 week course of Vancomycin for this. She denies ongoing diarrhea but her stools are not back to normal as of yet. She was admitted for similar symptoms earlier this month. Case discussed with Dr. Nagy; records reviewed in EMR. History Information - Allergies/Home Medication List Allergies/Adverse Reactions: Iodinated Contrast- Oral and IV Dye Allergy (Severe, Verified 05/31/18 10:46) Anaphylaxis penicillin V potassium [From Pen-Vee K] Allergy (Severe, Verified 05/31/18 10:46 ) ANAPHYLACTIC REACTION lisinopril Allergy (Intermediate, Verified 05/31/18 10:46) COUGH animal dander Allergy (Verified 05/31/18 10:46) dexamethasone Allergy (Verified 05/31/18 10:46) Other-Enter Comments lorazepam [From Ativan] Allergy (Verified 06/10/18 19:43) Other-Enter Comments Home Medications: Atorvastatin Calcium [Lipitor 40 mg (*)] 40 mg PO HS 05/21/18 [Last Taken ] Ondansetron Odt [Zofran Odt 4 mg (*)] 4 mg PO Q2D@05/21/18 [Last Taken ] Ondansetron Odt [Zofran Odt 4 mg (*)] 4 mg PO Q2D@05/21/18 [Last Taken ] Prochlorperazine Maleate [Compazine 10mg (*)] 10 mg PO Q2D@05/21/18 [Last Taken 06/10/18 AM] Prochlorperazine Maleate [Compazine 10mg (*)] 10 mg PO Q2D@05/21/18 [Last Taken 06/09/18] Valsartan [Diovan] 320 mg PO DAILY 06/10/18 [Last Taken Unknown] amLODIPine BESYLATE [Norvasc 10 mg (*)] 10 mg PO DAILY 06/10/18 [Last Taken Unknown] I have personally reviewed and updated: family history, medical history - Past Medical History hypertension Additional medical history: MDS, pancytopenia - Surgical History Reports: no pertinent surgical hx - Family History Additional family history: Denies family hx of blood disorders - Social History Smoking Status: Former smoker Review of Systems Review of Systems: ROS: 10pt was reviewed & negative except for what was stated in HPI & below Physical Exam Physical Exam: Temp Pulse Resp BP Pulse Ox 36.7 C 90 18 92/64 L 93 06/10/18 23:22 06/10/18 23:22 06/10/18 23:22 06/10/18 23:22 06/10/18 23:22 O2 (L/minute) 3.5 Constitutional: chronically ill appearing, obese Eyes: PERRL, pale conjunctiva Ears, Nose, Mouth, Throat: moist mucous membranes, no oral mucosal ulcers Cardiovascular: regular rate and rhythym, no murmur, rub, or gallop Respiratory: no respiratory distress, clear to auscultation Gastrointestinal: normoactive bowel sounds, soft, non-tender abdomen Skin: warm, normal color Musculoskeletal: no joint effusions, generalized weakness Neurologic: AAOx3, CN II-XII Intact Psychiatric: interacting appropriately, not anxious Lab Data & Imaging Review 06/10/18 19:19 06/10/18 19:19 WBC 1.48 10^3/uL (3.80-9.50) L 06/10/18 19:19 RBC 2.40 10^6/uL (4.18-5.33) L 06/10/18 19:19 Hgb 7.0 g/dL (12.6-16.3) L 06/10/18 19:19 Hct 20.5 % (38.0-47.0) L 06/10/18 19:19 MCV 85.4 fL (81.5-99.8) 06/10/18 19:19 MCH 29.2 pg (27.9-34.1) 06/10/18 19:19 MCHC 34.1 g/dL (32.4-36.7) 06/10/18 19:19 RDW 15.1 % (11.5-15.2) 06/10/18 19:19 Plt Count 10 10^3/uL (150-400) L* 06/10/18 19:19 Platelet Estimate DECREASED (ADEQ) L 06/10/18 19:19 Sodium 137 mEq/L (135-145) 06/10/18 19:19 Potassium 3.2 mEq/L (3.3-5.0) L 06/10/18 19:19 Chloride 99 mEq/L (97-110) 06/10/18 19:19 Carbon Dioxide 25 mEq/l (22-31) 06/10/18 19:19 Anion Gap 13 mEq/L (8-16) 06/10/18 19:19 BUN 19 mg/dL (7-23) 06/10/18 19:19 Creatinine 0.7 mg/dL (0.6-1.0) 06/10/18 19:19 Estimated GFR > 60 06/10/18 19:19 Glucose 108 mg/dL (70-100) H 06/10/18 19:19 Calcium 8.2 mg/dL (8.5-10.4) L 06/10/18 19:19 Urine Color EMIR 06/10/18 21:10 Urine Appearance CLEAR 06/10/18 21:10 Urine pH 5.0 (5.0-7.5) 06/10/18 21:10 Ur Specific [place] 1.024 (1.002-1.030) 06/10/18 21:10 Urine Protein NEGATIVE (NEGATIVE) 06/10/18 21:10 Urine Ketones NEGATIVE (NEGATIVE) 06/10/18 21:10 Urine Blood NEGATIVE (NEGATIVE) 06/10/18 21:10 Urine Nitrate NEGATIVE (NEGATIVE) 06/10/18 21:10 Urine Bilirubin NEGATIVE (NEGATIVE) 06/10/18 21:10 Urine Urobilinogen NEGATIVE EU (0.2-1.0) 06/10/18 21:10 Ur Leukocyte Esterase NEGATIVE (NEGATIVE) 06/10/18 21:10 Urine Glucose NEGATIVE (NEGATIVE) 06/10/18 21:10 Patient ABO/Rh A POSITIVE 06/10/18 20:05 Antibody Screen NEGATIVE 06/10/18 20:05 Imaging Review: Imaging Impressions Lumbar Spine CT 06/10/18 18:48 Impression: 1. Negative for fracture.. 2. Severe multilevel degenerative changes are seen, as detailed above, with multilevel canal stenosis noted. Results called and discussed with Juan F Dent PA-C on June 10, 2018 at [address] 06/10/18 18:48 Impression: 1. Pelvis negative for fracture. 2. See above report for additional findings. Results called and discussed with Juan F Dent PA-C on June 10, 2018 at 2021 hours. Assessment & Plan Assessment: 72 yo F w/ hx of HTN, MDS, and related pancytopenia presents with generalized weakness. Plan: 1. Generalized weakness - This is most likely multifactorial from MDS, pancytopenia, dehydration, and recent bout of C. Diff. Her Hgb has decreased mildly since 06/02 discharge (7.6->7.0) when she was admitted for similar symptoms; she denies any signs of bleeding. - PT/OT evaluations - [facility] - Address anemia as below 2. Fall - Patient denies any significant trauma or LOC; CT of pelvis and L- spine showed no acute findings on admission. - PT/OT evaluations 3. MDS, Pancytopenia - Cell lines all near usual baseline; patient denies any symptoms of infection or signs of bleeding at this time. - Monitor daily CBC - Transfuse for Hgb <7; I discussed option for transfusion tonight with patient but she refused as she states this does not usually help her weakness 4. Hx of C. Diff - S/p 2 week course of Vancomycin PO. She denies ongoing diarrhea but her stools are not fully formed yet. - GI PCR if diarrhea returns, I discussed this with patient and RN 5. HTN - Hold home antihypertensives at this time noting low/normal blood pressures. - Continue to monitor BP; restart meds if indicated Diet - Regular Code - Full Ppx - SCDs noting thrombocytopenia Dispo - Admit under inpatient status
[2018-06-11 08:49] LABS: PLATELET COUNT 8 10^3/uL (150-400)
[2018-06-11] MEDS ORDERED: ENOXAPARIN 40 MG/0.4 ML SYR SC SCH (09:00)
--- NOTE | 2018-06-11 09:36 | PDMN ---
Medical Necessity Medical necessity: [facility] Hematology GR yo w/ hx of MDS, related pancytopenia, and HTN presents with generalized weakness most likely multifactorial from MDS, pancytopenia, dehydration, and recent bout of C. Diff. H/H 04/06.5, immunosuppressed low WBC 1.28, high risk for bleed plt 5K, pt hypocalcemic and hypokalemic PT/OT evaluations, IVF, serial CBCs, poss transfusions if pt consents, did become hypotensive 90s/60s. Anticipate>2MN for ongoing monitoring and treatment.
[2018-06-11] MEDS ORDERED: PROTOCOL MAGNESIUM 1 DOSE IV PRN (12:07)
[2018-06-11] MEDS ORDERED: NS 500 ML IV ONE (12:07)
[2018-06-11] MEDS ORDERED: PROTOCOL POTASSIUM 1 DOSE MISC PRN (12:07)
--- NOTE | 2018-06-11 12:16 | PDCONSULT ---
Pain Management Nurse Practitioner Note: Hematology/oncology consultation note Reason for consultation: Myelodysplastic syndrome Referring provider: Fredis History of present illness: Zaina is a very pleasant 72-year-old female with history of very high risk myelodysplastic syndrome who was admitted to [facility] for a fall. Her MDS history dates back to February 2018. 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 She has significant transfusion requirements with regards to platelets and PRBCs. She was started in March of 2018 on Vidaza. She has had multiple admissions over the last month for weakness and falls. She also has history of C diff colitis that was treated with vancomycin. She has ongoing symptoms of loose stools of 8-9 bowel movements. She was admitted over the weekend due to a fall. She did not lose consciousness. Past medical history: Myelodysplastic syndrome Hypertension Asthma Hyperthyroidism Past surgical history: Tonsillectomy Achilles tendon repair Family history: No family history of malignancies. Social history: She was previously was an educator. She lives with a partner here in [place]. She has no drugs or alcohol use. Allergies: Iodine, PCN Review of systems: A 12 point ROS was obtained and was otherwise negative. Physical examination: Temp Pulse Resp BP Pulse Ox 36.7 C 89 18 100/55 L 100 06/11/18 03:49 06/11/18 03:49 06/11/18 03:49 06/11/18 03:49 06/11/18 03:49 O2 (L/minute) 2.5 General: Obese female, no acute distress HEENT: OP clear, PERRLA, EOMI Pulm: CTAB CV: RRR no m/g/r Abdomen: soft, nontender, nondistended, bs+ Ext: Bl LE edema 1+ equal Psych: Appropriate affect Neuro: Moving all ext Skin: No skin lesions Lymph: No lymphadenopathy 06/11/18 08:00 06/11/18 08:00 Patient ABO/Rh A POSITIVE 06/10/18 20:05 Assessment and plan: 1. Very high risk MDS: She is receiving Azacitidine since March 2018. There have been multiple delays due to hospitalization. She is followed by Dr. Stanislaw España. 2. Anemia/Thrombocytopenia: I have recommended transfusion pRBC and Plt today. 3. Dehydration: Receiving IV fluids today. 4. Hx of C. diff: Now that she is off of Vancomycin she is having loose stools. Repeat C. diff would likely be timing. She is being resumed on Vancomycin orally. All questions were answered. She voiced her understanding of the plan.
[2018-06-11] MEDS ORDERED: POTASSIUM CL 10 MEQ TAB PO ONE ×2 (13:00→22:31)
[2018-06-11] MEDS ORDERED: MAGNESIUM SULF 1 GM/DEXTROSE 100 ML IV ONE (13:03)
[2018-06-11] MEDS: ACETAMINOPHEN 325 MG TAB PO PRN ×2 (13:40→23:50)
--- NOTE | 2018-06-11 15:39 | HOSPPROG ---
Hospitalist Progress Note Assessment/Plan: 72 yo F w/ hx of HTN, MDS, and related pancytopenia presents with generalized weakness and ongoing diarrhea in setting of recently diagnosed cdiff. Plan: # Generalized weakness -multifactorial but with worsening anemia and dehydration in setting of cdiff. PT/OT/CM involved, will need SNF, she understands # c diff: recent bout with ongoing severe diarrhea consistent with continued infection, will provide prolonged taper of oral vanc # very high risk MdS: azacitidine since 03/2018 and pancytopenia as next, care plan reviewed with oncology # pancytopenia: with hgb < 7 and plts of 8 on arrival, tx of PRBC and platelets today, continue to monitor # htn: holding home hypertensive agents as she is mildly hypotensive currently # fc # IP status Patient new to my care. Old records reviewed and summarized as above. Care plan reviewed with oncology as above. Subjective: no significant overnight events, patient continues to feel fatigued and weak Objective: Vital Signs Temp Pulse Resp BP Pulse Ox 36.7 C 94 18 100/55 L 90 L 06/11/18 03:49 06/11/18 09:10 06/11/18 03:49 06/11/18 03:49 06/11/18 09:10 Laboratory Results 06/11/18 08:00 06/11/18 08:00 06/10/18 06/11/18 06/12/18 05:59 05:59 05:59 Intake Total 300 Output Total 1250 Balance -950 Constitutional: chronically ill appearing, obese Eyes: PERRL, pale conjunctiva Ears, Nose, Mouth, Throat: moist mucous membranes, no oral mucosal ulcers Cardiovascular: regular rate and rhythym, no murmur, rub, or gallop Respiratory: no respiratory distress, clear to auscultation Gastrointestinal: normoactive bowel sounds, soft, non-tender abdomen Skin: warm, normal color Musculoskeletal: no joint effusions, generalized weakness Neurologic: AAOx3, CN II-XII Intact Psychiatric: interacting appropriately, not anxious ICD10 Worksheet Patient Problems: Problems Problem Status Onset Dehydration Acute Diarrhea Acute Exertional dyspnea Acute Failure to thrive in adult Acute Pancytopenia Acute
[2018-06-11] MEDS: VANCOMYCIN 125 MG/2.5 ML UDL PO SCH ×2 (16:31→21:15)
--- NOTE | 2018-06-11 17:43 | ASMTCASEMG ---
Living Arrangements What is your living Answers: With Spouse arrangement? Who do you live with? Type Of Residence What kind of residence do Answers: House you live in? Discharge Plan Comments Coordination Status Comments Notes: Patient is a 72yo female who has a partner that lives with her. Patient has been admitted for pancytopenia, exertional dyspnea, diarrhea, dehydration and failure to thrive. Patient's MDPOA is her daughter Hazel ([phone]). PT/OT have been ordered. Patient has been falling frequently as a result of weakness. The family has called 911 at times to get her off the floor. Per PCP's office patient's daughter is interested in placement but the patient does not want to go. Spoke with patient's daughter Tiffanie at length and she is concerned stating her mother cannot go home safely. Tiffanie states her mother has not been realistic about what she cannot do and tends to define "independent" as telling someone what she needs vs. doing for herself. Tiffanie states she has been so weak she slides out of bed and when she does they have to call 911 to get her off the floor. Tiffanie has relieved patient's life partner of being the campus director as he cannot lift her or do the things she needs. He is an older gentleman himself. Patient's daughter states she cannot go home this time because they will be right back to the same situation. Spoke with the patient who did not want to discuss today as she is feeling overwhelmed with several things. I did explain to her what SNF rehab is and that it is a temporary program to help patient's get stronger so they can return home successfully. Patient acknowledged she understood but does not want to discuss anything else right now. Patient's daughter Tiffanie will be here tomorrow which may be a better time to have the discussion with patient and her daughter present. CM will follow. Date Signed: 06/11/2018 05:42 PM Electronically Signed By:Kathleen Corbett LCSW
[2018-06-11] MEDS: ATORVASTATIN CALCIUM 40 MG TAB PO SCH (21:14)
[2018-06-12] MEDS: NS 1,000 ML IV SCH (03:50)
[2018-06-12] MEDS: VANCOMYCIN 125 MG/2.5 ML UDL PO SCH ×4 (06:12→21:37)
[2018-06-12 09:08] LABS: PLATELET COUNT 33 10^3/uL (150-400)
[2018-06-12] MEDS ORDERED: POTASSIUM CL 10 MEQ TAB PO ONE (09:20)
[2018-06-12] MEDS: guaiFENesin 600 MG TAB.ER PO SCH ×2 (09:47→21:38)
[2018-06-12] MEDS ORDERED: MAGNESIUM SULF 1 GM/DEXTROSE 100 ML IV ONE (10:31)
--- NOTE | 2018-06-12 12:45 | SOAPPROG ---
[facility] Progress Note Assessment/Plan: Assessment: Zaina is a very pleasant 72-year-old female with history of very high risk myelodysplastic syndrome who was admitted for dehydration secondary to C diff colitis. 1. Very high risk MDS: She was receiving hypomethylating agents and received 2 cycles. She did have some improvement in her PRBC transfusion requirements. Following discharge she will see Dr. España. 2. C diff colitis: She was resumed on oral vancomycin. 3. Deconditioning: She states that she is interviewed or is in the process of having a home health aide hired. She is not interested in assisted. 06/12/18 12:43 Subjective: No acute events overnight. She has no loose bowel movements. She does feel little bit better following transfusion. She has not gotten out of bed. No fevers. Objective: Vital Signs Temp Pulse Resp BP Pulse Ox 36.9 C 90 16 110/72 96 06/12/18 10:13 06/12/18 10:13 06/12/18 10:13 06/12/18 10:13 06/12/18 10:13 Laboratory Results 06/12/18 08:35 06/12/18 08:35 06/11/18 06/12/18 06/13/18 05:59 05:59 05:59 Intake Total 300 1983 1150 Output Total 1250 400 Balance -950 1583 1150 General: Pleasant female appears in no acute distress HEENT: Dry mucous membranes opiates clear Cardiovascular: Regular rhythm no murmurs gallops or Pulmonary: Clear to auscultation anterior Abdomen: Soft nontender nondistended bowel sounds are present Extremities: 1+ bilateral edema ICD10 Worksheet Patient Problems: Problems Problem Status Onset Dehydration Acute Diarrhea Acute Exertional dyspnea Acute Failure to thrive in adult Acute Pancytopenia Acute
--- NOTE | 2018-06-12 13:49 | ASMTCMCOM ---
CM Note CM Note Notes: Chart reviewed. met with patient and her daughter Tiffanie who is the patient's POA. Per Tiffanie, her mother has becoming increasingly weaker and that EMS was called at least 5 days in a row to assist with getting patient up form the floor. The patient is weakened and de-conditioned. She is being treated for C Diff. The patient tends to be dismissive with care providers and is not interested in working with therapies and has poor insight into her actual needs. CM to follow. Likely to needs SNF rehab at discharge. Plan: TBD Date Signed: 06/12/2018 01:48 PM Electronically Signed By:Donna Leslie RN
--- NOTE | 2018-06-12 14:39 | HOSPPROG ---
Hospitalist Progress Note Assessment/Plan: #High-risk MDS with pancytopenia -counts improved after transfusions #Deconditioning/falls -family is very concerned about her safety at home; multiple falls. Pt has poor insight into her capabilities. Has been refusing PT. Emphasized thus is part of her medical care and encourage participation -PC consulted for goals #C diff colitis: diagnosed 05/21. Now on prolonged taper with recent diarrhea #Hypokalemia: resolved #Diet: regular #DVT ppx: Subjective: fatigued Objective: Vital Signs Temp Pulse Resp BP Pulse Ox 36.9 C 90 16 110/72 96 06/12/18 10:13 06/12/18 10:13 06/12/18 10:13 06/12/18 10:13 06/12/18 10:13 Laboratory Results 06/12/18 08:35 06/12/18 08:35 06/11/18 06/12/18 06/13/18 05:59 05:59 05:59 Intake Total 300 1983 1150 Output Total 1250 400 Balance -950 1583 1150 - Time Spent With Patient Time Spent with Patient: greater than 35 minutes Time Spent with Patient: Greater than 35 minutes spent on this patients care, greater than 50% of time spent counseling, educating, and coordinating care regarding the above mentioned plan. - Physical Exam Constitutional: other (fatigued) Eyes: PERRL Ears, Nose, Mouth, Throat: moist mucous membranes Cardiovascular: regular rate and rhythym Respiratory: no respiratory distress Gastrointestinal: normoactive bowel sounds Genitourinary: no bladder fullness Skin: warm Musculoskeletal: generalized weakness Neurologic: AAOx3, CN II-XII Intact Psychiatric: flat affect ICD10 Worksheet Patient Problems: Problems Problem Status Onset Dehydration Acute Diarrhea Acute Exertional dyspnea Acute Failure to thrive in adult Acute Pancytopenia Acute
[2018-06-12] MEDS: ATORVASTATIN CALCIUM 40 MG TAB PO SCH (21:38)
[2018-06-13 04:54] LABS: PLATELET COUNT 25 10^3/uL (150-400)
[2018-06-13] MEDS: VANCOMYCIN 125 MG/2.5 ML UDL PO SCH ×4 (05:56→20:38)
[2018-06-13] MEDS: NS 1,000 ML IV SCH (05:58)
[2018-06-13] MEDS: guaiFENesin 600 MG TAB.ER PO SCH ×2 (09:35→20:38)
--- NOTE | 2018-06-13 16:23 | HOSPPROG ---
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 Monitor closely #Deconditioning/falls -family is very concerned about her safety at home; multiple falls. Pt has poor insight into her capabilities. Has been refusing PT. Emphasized thus is part of her medical care and encourage participation #Poor appetite: check albumin, encourage Ensure #C diff colitis: diagnosed 05/21. Now on prolonged taper with recent diarrhea #Hypokalemia: resolved #Diet: regular #DVT ppx: #Goals: spoke with Tiffanie (daughter) on phone. Patient has been failing at home with decreased PO. It has been difficult determining her goals; Palliative care consulted for meeting . If she wants chemo, her performance status must improve and she needs to participate in PT. Additional direct patient care: 30 min discussing advanced directives and goals with patient and daughter (3:30pm-4:00pm) Subjective: not eating, will not work with PT Objective: Vital Signs Temp Pulse Resp BP Pulse Ox 36.9 C 92 18 146/80 H 96 06/13/18 09:55 06/13/18 09:55 06/13/18 09:55 06/13/18 09:55 06/13/18 09:55 Laboratory Results 06/13/18 04:08 06/12/18 08:35 06/12/18 06/13/18 06/14/18 05:59 05:59 05:59 Intake Total 1983 1150 1723 Output Total 400 Balance 1583 1150 1723 - Time Spent With Patient Time Spent with Patient: greater than 35 minutes Time Spent with Patient: Greater than 35 minutes spent on this patients care, greater than 50% of time spent counseling, educating, and coordinating care regarding the above mentioned plan. - Physical Exam Constitutional: other (pale, fatigued) Eyes: PERRL Ears, Nose, Mouth, Throat: moist mucous membranes Cardiovascular: regular rate and rhythym Respiratory: no respiratory distress Gastrointestinal: normoactive bowel sounds Genitourinary: no bladder fullness Skin: warm Musculoskeletal: full muscle strength Neurologic: CN II-XII Intact Psychiatric: flat affect ICD10 Worksheet Patient Problems: Problems Problem Status Onset Dehydration Acute Diarrhea Acute Exertional dyspnea Acute Failure to thrive in adult Acute Pancytopenia Acute
[2018-06-13] MEDS ORDERED: SODIUM CL NASAL 45 ML BTL EACHNARE PRN (16:28)
--- NOTE | 2018-06-13 17:00 | ASMTCMCOM ---
CM Note CM Note Notes: Patient plan of care reviewed in rounds. Attempted to see her with Chadwick De Souza to discuss palliative care. She declines for today but will see us tomorrow. Plan of care TBD. Plan: TBD Date Signed: 06/13/2018 04:59 PM Electronically Signed By:Donna Leslie RN
[2018-06-13] MEDS: ATORVASTATIN CALCIUM 40 MG TAB PO SCH (20:38)
[2018-06-14] MEDS: NS 1,000 ML IV SCH (01:01)
[2018-06-14 04:28] LABS: PLATELET COUNT 16 10^3/uL (150-400)
[2018-06-14] MEDS: VANCOMYCIN 125 MG/2.5 ML UDL PO SCH ×4 (06:16→20:09)
[2018-06-14] MEDS: guaiFENesin 600 MG TAB.ER PO SCH ×2 (08:53→20:09)
[2018-06-14 10:00] LABS: PLATELET COUNT 15 10^3/uL (150-400)
--- NOTE | 2018-06-14 13:38 | ASMTCMCOM ---
CM Note CM Note Notes: Met with patient along with. Palliative care Chadwick Ap. Patient expressed that she is angry. She is unclear of her prognosis. She wishes to go home. She does acknowledge she has nutritional deficits and physical limitations. She continues to refuse therapy with PT and OT. Discussed plan of care in interdisciplinary rounds and her partner of 6 years commented that he is physically unable to provide her care any longer. Per discussion with hospital medicine Dr. Nagy he feels it may be reasonable to accomodate the patients request to return home with additional supportive measures if the family is able to secure in home care in addition to HHC and palliative care. Attempted to call and discuss with Cj, left message to return my call. CM to follow for needs. Plan: TBD Date Signed: 06/14/2018 01:38 PM Electronically Signed By:Dnona Leslie RN
--- NOTE | 2018-06-14 16:25 | ASMTCMCOM ---
CM Note CM Note Notes: Csll place to partner Cj regarding patient plan of care. Patient did agree to work with PT today and requires max assist of 2 for mobility. It is felt that SNF be most appropriate placemn=ent for patient at this time. Spoke with daughter Tiffanie and detailed information for todays interactions with the patient. Tiffanie prefers her mother go to SNF and states that Cj will not be responsible for patient care any longer as he feels he can't provide needed care. Will review with Hospitalist. Referrals via allscripts. CM to follow. Plan : TBD Date Signed: 06/14/2018 03:46 PM Electronically Signed By:Donna Leslie RN
--- NOTE | 2018-06-14 17:40 | HOSPPROG ---
Hospitalist Progress Note Assessment/Plan: Assessment: 72-year-old female presents with acute worsening of chronic weakness in the setting of severe myelodysplastic syndrome Plan: # Severe MDS with pancytopenia. Patient is transfusion dependent, her counselor significantly low today but do not require transfusions -d/w Dr. Boggs, he reports to me that the patient will have her labs followed up as an outpatient by Dr. España and she will remain transfusion dependent per her current goals of care -repeat CBC in a.m. and transfuse the platelets less than 10,000, hemoglobin less than 7000 # Acute on chronic weakness. Generalized, resulting in significant deconditioning and low performance status -lumbar CT w/o fracture, has DJD (personally interpreted) -patient's partner reports that he can no longer care for her safely at home without significant assistance -patient is averse to [facility] and she is requesting that we attempt to secure her private, full 24/7 care at home -the patient may financially be able to support this level of care, case management will explore this with the patient's family, and the patient has indicated that it is appropriate for us to explore this with her partner, Cj -the patient is amenable to supplementing private duty home care with home health care as well as palliative services # Suspected severe protein calorie malnutrition. Acute worsening of chronic anorexia, although the patient has an elevated BMI I suspect that she is currently malnourished and will pursue further workup -albumin low, check serum pre-albumin level -get dietary consultation -provide supplements and encourage smoothies, Ensure with patient # history of C diff colitis: diagnosed 05/21. Now on prolonged taper with recent diarrhea #Hypokalemia: resolved #Diet: regular #DVT ppx: Hike, holding pharm given severe thrombocytopenia, SCDs #Code: DNR, daughter remains MDPOA #Dispo: Anticipated discharge uncertain this time, patient has yet to solidify a safe discharge plan as she is not currently safe to discharge home and she does not currently have the services in place that she requests and requires at that locale. Subjective: Patient reports she has not been out of bed today Objective: Vital Signs Temp Pulse Resp BP Pulse Ox 36.5 C 79 16 120/68 100 06/14/18 12:19 06/14/18 12:19 06/14/18 12:19 06/14/18 12:19 06/14/18 12:19 Laboratory Results 06/14/18 09:40 06/14/18 03:51 06/13/18 06/14/18 06/15/18 05:59 05:59 05:59 Intake Total 1150 4223 Balance 1150 4223 - Physical Exam Constitutional: not in pain, chronically ill appearing, obese, No uncomfortable Cardiovascular: regular rate and rhythym, no murmur, rub, or gallop, No edema Respiratory: no respiratory distress, no rales or rhonchi, clear to auscultation Gastrointestinal: normoactive bowel sounds, soft, non-tender abdomen, no palpable masses, other (Obese abdomen) Neurologic: AAOx3, weakness (4/5 lower extremity motor bilaterally), No facial droop Psychiatric: not anxious, not encephalopathic, flat affect, other (Withdrawn), No agitated ICD10 Worksheet Patient Problems: Problems Problem Status Onset Dehydration Acute Diarrhea Acute Exertional dyspnea Acute Failure to thrive in adult Acute Pancytopenia Acute
[2018-06-14] MEDS: ATORVASTATIN CALCIUM 40 MG TAB PO SCH (20:09)
[2018-06-15] MEDS: VANCOMYCIN 125 MG/2.5 ML UDL PO SCH ×4 (05:40→21:21)
[2018-06-15] MEDS: guaiFENesin 600 MG TAB.ER PO SCH ×2 (09:11→21:21)
[2018-06-15 09:20] LABS: PLATELET COUNT 10 10^3/uL (150-400)
--- NOTE | 2018-06-15 12:31 | SOAPPROG ---
SOAP Progress Note Assessment/Plan: Assessment: Zaina is a very pleasant 72-year-old female with history of very high risk myelodysplastic syndrome who was admitted for dehydration secondary to C diff colitis. 1. Very high risk MDS: She was receiving hypomethylating agents and received 2 cycles. She did have some improvement in her PRBC transfusion requirements. Unfortunately, she has been unable to receive more therapy due to her underlying performance status and multiple falls. She has had multiple admissions over the last month due to falls and deconditioning. The main issue for her today is placement. She is open to considering a fci facility. We discussed that if her overall condition does not improve that she likely will not be candidate for further therapy. 2. C diff colitis: On oral vancomycin 3. Deconditioning: She has had minimal improvement during her hospitalization. There is discussions about transferring for her to a fci facility. 06/15/18 12:29 Subjective: No acute events overnight. Having back pain and discomfort due to back pain in the bed. Diarrhea has improved. Objective: Vital Signs Temp Pulse Resp BP Pulse Ox 36.6 C 89 16 147/80 H 98 06/15/18 09:13 06/15/18 09:13 06/15/18 09:13 06/15/18 09:13 06/15/18 09:13 Laboratory Results 06/15/18 09:00 06/15/18 09:00 06/14/18 06/15/18 06/16/18 05:59 05:59 05:59 Intake Total 4223 500 Output Total 900 300 Balance 4223 -400 -300 General: Pleasant-appearing female no acute distress, obese lying in bed. HEENT: Oropharynx is clear extraocular movements are intact, dry mucous membrane Cardiovascular: Regular rhythm Extremities: 2+ lower extremity edema bilaterally equal Psych: Appropriate affect Neuro: Moving all extremities ICD10 Worksheet Patient Problems: Problems Problem Status Onset Dehydration Acute Diarrhea Acute Exertional dyspnea Acute Failure to thrive in adult Acute Pancytopenia Acute
--- NOTE | 2018-06-15 12:43 | ASMTCMCOM ---
CM Note CM Note Notes: Patient seen in interdisciplinary rounds. Spoke with her partner Cj who is unable to provide the level of care required. She is reluctantly agreeable to SNF after discussion with Dr. Nagy and CM, She has been approved by [facility] in [place] and they live in [place] so it would be acceptable. Plan to transfer tomorrow. Spoke with Oncology who feels she is not physically ready to resume chemo at this time. CM to follow. Plan: To [facility] tomorrow. Date Signed: 06/15/2018 12:38 PM Electronically Signed By:Donna Leslie RN
--- NOTE | 2018-06-15 16:55 | HOSPPROG ---
Hospitalist Progress Note Assessment/Plan: Assessment: 72-year-old female presents with acute worsening of chronic weakness in the setting of severe myelodysplastic syndrome Plan: # Severe MDS with pancytopenia. Patient is transfusion dependent, her counts are significantly low today but do not require transfusions -d/w Dr. Boggs, he reports to me that the patient will have her labs followed up as an outpatient by Dr. España and she will remain transfusion dependent per her current goals of care -repeat CBC in a.m. and transfuse the platelets less than 10,000, hemoglobin less than 7 # Acute on chronic weakness. Generalized, resulting in significant deconditioning and low performance status -patient's partner reports that he can no longer care for her, patient is amenable to SNF rehab at [facility] as means of improving performance status -counseled patient/partner regarding dispo plan # Suspected severe protein calorie malnutrition. Acute worsening of chronic anorexia, although the patient has an elevated BMI I suspect that she is currently malnourished and will pursue further workup -pre-albumin 9.5 -patient decline dietary consultation -cont supplements -counseled patient that diet stimulant (mirtazepine) may be useful for dual- purpose (appetite/mood), but she is declining at this time, already using CBD # history of C diff colitis: diagnosed 05/21. Now on prolonged taper with recent diarrhea #Hypokalemia: resolved #Diet: regular #DVT ppx: High, holding pharm given severe thrombocytopenia, SCDs #Code: DNR, daughter remains MDPOA #Dispo: Anticipated discharge 06/16 to [facility], pending stability of above. Subjective: patien denies significant pain, willing to work w/ PT/OT today Objective: Vital Signs Temp Pulse Resp BP Pulse Ox 36.6 C 89 16 147/80 H 98 06/15/18 09:13 06/15/18 09:13 06/15/18 09:13 06/15/18 09:13 06/15/18 09:13 Laboratory Results 06/15/18 09:00 06/15/18 09:00 06/14/18 06/15/18 06/16/18 05:59 05:59 05:59 Intake Total 4223 500 Output Total 900 300 Balance 4223 -400 -300 - Time Spent With Patient Time Spent with Patient: greater than 35 minutes Time Spent with Patient: Greater than 35 minutes spent on this patients care, greater than 50% of time spent counseling, educating, and coordinating care regarding the above mentioned plan. - Pending Discharge Pending Discharge Within 24 Hours: Yes Pending Discharge Date: 06/16/18 Pending Discharge Time: 11:00 - Physical Exam Constitutional: no apparent distress, not in pain, chronically ill appearing, unkempt, No uncomfortable Neurologic: AAOx3 Psychiatric: not anxious, not encephalopathic, flat affect, No agitated ICD10 Worksheet Patient Problems: Problems Problem Status Onset Pancytopenia Acute Exertional dyspnea Acute Diarrhea Acute Dehydration Acute Failure to thrive in adult Acute
[2018-06-15] MEDS: ATORVASTATIN CALCIUM 40 MG TAB PO SCH (21:21)
[2018-06-16 04:56] LABS: PLATELET COUNT 6 10^3/uL (150-400)
[2018-06-16] MEDS: VANCOMYCIN 125 MG/2.5 ML UDL PO SCH ×3 (05:02→15:02)
[2018-06-16 07:34] VITALS: BP 142/70
[2018-06-16] MEDS: guaiFENesin 600 MG TAB.ER PO SCH (08:00)
--- NOTE | 2018-06-16 11:05 | PDIAF ---
- Diagnosis Code Status: Do Not Resuscitate - Medication Management Discharge Medications: Medications to Continue on Transfer Atorvastatin Calcium [Lipitor 40 mg (*)] 40 mg PO HS 05/21/18 [Last Taken ] Ondansetron Odt [Zofran Odt 4 mg (*)] 4 mg PO Q2D@,05/21/18 [Last Taken ] Ondansetron Odt [Zofran Odt 4 mg (*)] 4 mg PO Q2D@05/21/18 [Last Taken ] Prochlorperazine Maleate [Compazine 10mg (*)] 10 mg PO Q2D@,05/21/18 [Last Taken 06/10/18 AM] Prochlorperazine Maleate [Compazine 10mg (*)] 10 mg PO Q2D@12 05/21/18 [Last Taken 06/09/18] Valsartan [Diovan] 320 mg PO DAILY 06/10/18 [Last Taken Unknown] amLODIPine BESYLATE [Norvasc 10 mg (*)] 10 mg PO DAILY 06/10/18 [Last Taken Unknown] Acetaminophen [Tylenol 325mg (*)] 650 mg PO Q4HRS PRN tab 06/16/18 [Last Taken Unknown] Sodium Cl Nasal [[place] (*)] 1 spray EACHNARE PRN PRN btl 06/16/18 [Last Taken Unknown] Vancomycin [Vancocin Oral Liquid] 125 mg PO QID udl 06/16/18 [Last Taken Unknown] guaiFENesin [Mucinex 600 MG (*)] 600 mg PO BID PRN tab.er 06/16/18 [Last Taken Unknown] Care Home Antibiotics: vancomycin for c diff- dc date to be determined/per oncology/PCP (Dr Martinez Discharge Medications: Refer to the Discharge Home Medication list for PRN reason. - Orders Services needed: Physical Therapy Home Care Face to Face: 06/16/2018 Dr Gisel Mars MD Isolation Type: CDIFF Isolation, Contact Isolation, Neutropenic Isolation Diet Recommendation: no restrictions on diet Diet Texture: Regular Texture Diet Crum: Not applicable Activity/Weight Bearing Restrictions: per PT/OT evals, lives at home usually - Follow Up Care Current Providers and Referrals: Patient,NotPresent [Unknown] - As per Instructions Hima Whittington, [Primary Care Provider] - 3 days of d/c SNF/Rehab Alice España MD [Medical Doctor] - follow up as scheduled (call re plan for transfusions- is transfusion dependent for platelets, RBCs. Declines palliative care consults here)
--- NOTE | 2018-06-16 13:24 | ASMTLACE ---
LACE Length of stay for Answers: 4-6 days current admission Acuity / Level of Answers: Yes Care: Did the patient have an inpatient admission? Comorbidities - select Answers: Opioid dependence all that apply / Chronic pain Other Notes: HTN # of Emergency department Answers: 5-8 visits in the last 6 months Score: 16 Date Signed: 06/16/2018 01:23 PM Electronically Signed By:Donna Leslie RN
--- NOTE | 2018-06-16 13:29 | ASMTCMCOM ---
CM Note CM Note Notes: Patient medically clear for dc. Originally planned to dc to [facility], however they are limited on # of admits per day. Per [facility] they are able to accept patient. Discussed with patient and her partner. Plan will be changed to [facility].Orders via allscripts. PSC form, DNR and facesheet to unit co-ordinator. Patient to transfer at 3:30 pm. February RN to call report. CM available should other needs arise. Plan: DC to [facility] Date Signed: 06/16/2018 01:28 PM Electronically Signed By:Donna Leslie RN
--- NOTE | 2018-06-16 16:19 | ASDISCHSUM ---
Discharge Information Plan Status:SNF Medically Cleared to Leave:06/16/2018 Discharge Date:06/16/2018 04:15 PM D/C Disposition:[facility] Facility ADT D/C Disposition:Prison Facility Projected Discharge Date:06/15/2018 11:00 AM Transportation at D/C:ALS/BLS Discharge Delay Reason: Follow-Up Date:06/15/2018 11:00 AM Discharge Slot: Final Diagnosis: Placement Information Referral Type:*[facility]/SNF Referral ID:[id number] Provider Name:[facility] Address 1:[address] Address 2: City:[place] Selection Factors: State:[place] Patient Contact Information Contact Name:TORIBIO Relationship:Life Partner Address:[address] City:[place] Alternate Phone: State/Zip Code:[place] [address] Email: Financial Information Financial Class:Medicare Primary Plan Desc:MEDICARE INPATIENT Primary Plan Number:[id number] Secondary Plan Desc: OUT OF [facility] Secondary Plan Number:[id number] Assessment Information LACE LACE Length of stay for Answers: 4-6 days current admission Acuity / Level of Answers: Yes Care: Did the patient have an inpatient admission? Comorbidities - select Answers: Opioid dependence all that apply / Chronic pain Other Notes: HTN # of Emergency department Answers: 5-8 visits in the last 6 months Score: 16 Date Signed: 06/16/2018 01:23 PM Electronically Signed By:Donna Leslie RN [facility] Initial CM Assessment Living Arrangements What is your living Answers: With Spouse arrangement? Who do you live with? Type Of Residence What kind of residence do Answers: House you live in? Discharge Plan Comments Coordination Status Comments Notes: Patient is a 72yo female who has a partner that lives with her. Patient has been admitted for pancytopenia, exertional dyspnea, diarrhea, dehydration and failure to thrive. Patient's MDPOA is her daughter Hazel ([phone]). PT/OT have been ordered. Patient has been falling frequently as a result of weakness. The family has called 911 at times to get her off the floor. Per PCP's office patient's daughter is interested in placement but the patient does not want to go. Spoke with patient's daughter Tiffanie at length and she is concerned stating her mother cannot go home safely. Tiffanie states her mother has not been realistic about what she cannot do and tends to define "independent" as telling someone what she needs vs. doing for herself. Tiffanie states she has been so weak she slides out of bed and when she does they have to call 911 to get her off the floor. Tiffanie has relieved patient's life partner of being the head of merchandise buying as he cannot lift her or do the things she needs. He is an older gentleman himself. Patient's daughter states she cannot go home this time because they will be right back to the same situation. Spoke with the patient who did not want to discuss today as she is feeling overwhelmed with several things. I did explain to her what SNF rehab is and that it is a temporary program to help patient's get stronger so they can return home successfully. Patient acknowledged she understood but does not want to discuss anything else right now. Patient's daughter Tiffanie will be here tomorrow which may be a better time to have the discussion with patient and her daughter present. CM will follow. Date Signed: 06/11/2018 05:42 PM Electronically Signed By:Kathleen Corbett LCSW [facility] Progress Note CM Note CM Note Notes: Chart reviewed. met with patient and her daughter Tiffanie who is the patient's POA. Per Tiffanie, her mother has becoming increasingly weaker and that EMS was called at least 5 days in a row to assist with getting patient up form the floor. The patient is weakened and de-conditioned. She is being treated for C Diff. The patient tends to be dismissive with care providers and is not interested in working with therapies and has poor insight into her actual needs. CM to follow. Likely to needs SNF rehab at discharge. Plan: TBD Date Signed: 06/12/2018 01:48 PM Electronically Signed By:Donna Leslie RN [facility] CM Progress Note CM Note CM Note Notes: Patient plan of care reviewed in rounds. Attempted to see her with Chadwick De Souza to discuss palliative care. She declines for today but will see us tomorrow. Plan of care TBD. Plan: TBD Date Signed: 06/13/2018 04:59 PM Electronically Signed By:Donna Leslie RN [facility] CM Progress Note CM Note CM Note Notes: Met with patient along with. Palliative care Chadwick De Souza. Patient expressed that she is angry. She is unclear of her prognosis. She wishes to go home. She does acknowledge she has nutritional deficits and physical limitations. She continues to refuse therapy with PT and OT. Discussed plan of care in interdisciplinary rounds and her partner of 6 years commented that he is physically unable to provide her care any longer. Per discussion with hospital medicine Dr. Nagy he feels it may be reasonable to accomodate the patients request to return home with additional supportive measures if the family is able to secure in home care in addition to HHC and palliative care. Attempted to call and discuss with Cj, left message to return my call. CM to follow for needs. Plan: TBD Date Signed: 06/14/2018 01:38 PM Electronically Signed By:Donna Leslie RN [facility] Progress Note CM Note CM Note Notes: ll place to partner Cj regarding patient plan of care. Patient did agree to work with PT today and requires max assist of 2 for mobility. It is felt that SNF be most appropriate placemn=ent for patient at this time. Spoke with daughter Tiffanie and detailed information for todays interactions with the patient. Tiffanie prefers her mother go to SNF and states that Cj will not be responsible for patient care any longer as he feels he can't provide needed care. Will review with Hospitalist. Referrals via allscripts. CM to follow. Plan : TBD Date Signed: 06/14/2018 03:46 PM Electronically Signed By:Donna Leslie RN [facility] Progress Note CM Note CM Note Notes: Patient seen in interdisciplinary rounds. Spoke with her partner Cj who is unable to provide the level of care required. She is reluctantly agreeable to SNF after discussion with Dr. Nagy and CM, She has been approved by [facility] in [place] and they live in [place] so it would be acceptable. Plan to transfer tomorrow. Spoke with Oncology who feels she is not physically ready to resume chemo at this time. CM to follow. Plan: To [facility] tomorrow. Date Signed: 06/15/2018 12:38 PM Electronically Signed By:Donna Leslie RN [facility] CM Progress Note CM Note CM Note Notes: Patient medically clear for dc. Originally planned to dc to [facility], however they are limited on # of admits per day. Per [facility] they are able to accept patient. Discussed with patient and her partner. Plan will be changed to [facility].Orders via allscripts. PSC form, DNR and facesheet to unit co-ordinator. Patient to transfer at 3:30 pm. February RN to call report. CM available should other needs arise. Plan: DC to [facility] Date Signed: 06/16/2018 01:28 PM Electronically Signed By:Donna Leslie RN Intervention Information
--- NOTE | 2018-06-16 19:55 | GDS ---
SERVICE: [facility] hospitalist. CONSULTS: Oncology. PROCEDURES: Pelvis CT showing no fracture. No pelvic masses. No free fluid. Also lumbar spine CT showing no fracture, severe multilevel degenerative changes , and canal stenosis. H AND P: Please see previously dictated note by Dr. Alvarez. INITIAL DIAGNOSES: 1. Generalized weakness status post fall. 2. Myelodysplastic syndrome with pancytopenia, transfusion dependent. 3. History of C difficile diarrhea. 4. Hypertension. DISCHARGE DIAGNOSES: 1. Generalized weakness status post fall. 2. Myelodysplastic syndrome with pancytopenia, transfusion dependent. 3. History of C difficile diarrhea. 4. Hypertension. HOSPITAL COURSE: 1. She came into the emergency department after a fall and worsening weakness. She lives at home with a partner who reported that he could no longer take care of her at home. She has had physical therapy and occupational therapy evaluations while here, with minimal improvement. Palliative care was discussed with her and she does not want to pursue at this time. However, she is agreeable to half-way facility rehab placement to work on her strength and further decision about whether she will be able to return home. 2. Severe myelodysplastic syndrome with pancytopenia. Her outpatient oncologist is Dr. España. She is chronically transfusion-dependent and has received 2 units of red blood cells and 2 units of platelets while she is here. Oncology was asked to see her during her stay and did not have any further recommendations other than continuing to follow up with Dr. España at [facility] for outpatient transfusions. Accepting facility will need to contact [facility] to coordinate this ongoing care. Of note, her white blood cell count at discharge was 0.94. Her platelet count was 6 (prior to getting a platelet transfusion) and her hemoglobin was 7.[address] Castro was aware of all of these numbers prior to her discharge today. 3. History of C difficile colitis. She has been taking p.o. vancomycin and has had some loose stools while she was here, but not inder diarrhea. Length of treatment should be clarified with her oncologist at a followup appointment. Consider rechecking for active disease if she develops worsening loose stools. 4. Hypertension. Medications were held at admission as her blood pressures were fairly low in the 90s to 100s over 50s to 60s. However, at time of discharge, they have been increasing to the 160s over 100 (note that they are checking blood pressure on her forearm). I have restarted her home medications , but recommend following her blood pressure closely to see if these need to be titrated. DISCHARGE INSTRUCTIONS: Please see interagency form for discharge instructions and also for full medication list. She will receive PT and OT at the facility as needed. Also suggest watching her protein and calorie intake as concern here for severe protein calorie malnutrition. Even though she has a significantly elevated BMI, she has had worsening anorexia and is at high risk for having nutritional deficiencies. Of note, her pre-albumin was 9.5 while she was in the hospital, but she did not want to do a dietary consult or diet stimulants at this time. Patient is a DNR and her daughter is her MD VELASQUEZ. Primary care doctor is Dr Yovani Whittington at [facility] and primary oncologist is Dr. España at [facility]. /[id number]/MODL MTDD
--- NOTE | 2018-06-20 08:04 | PQFORM ---
PHYSICIAN QUERY FORM Needs Your Response This query form is being sent to you to assure this patient record is coded properly. Please respond to the question below: [employer] FILLING MACHINE OPERATOR QUESTION: Dr Mars Progress Notes mention Severe Protein Calorie Malnutrition however SPCM was not listed on the Discharge Summary. Did this patient have Severe Protein Calorie Malnutrition? ___ Yes ___ No ___xx Other Please Specify not listed as a problem per say but it is in the discharge summary under instructions or follow up ) ___ Unable to determine Thank You Melida [employer] INSTRUCTIONS FOR RESPONSE: Answer question by clicking on the "Edit Document" button. Move cursor to area below the stars. When complete, hit "Save." Click on the "Sign" button, then click "Sign" again. Type in your PIN and hit "Enter." MTDD
== END 2018-06-16 16:15 | DRG 811 ==
LOC: EDUNIT# → F1N 21:56
PROVIDERS: ADMIT Internal Medicine; ATTEND Internal Medicine
PROC: 30233R1 Transfusion of Nonautologous Platelets into Peripheral Vein, Percutaneous Approach (ICD-10-PCS; principal; 2018-06-10)
PROC: 30233N1 Transfusion of Nonautologous Red Blood Cells into Peripheral Vein, Percutaneous Approach (ICD-10-PCS; principal; 2018-06-10)
DX: D46.9 Myelodysplastic syndrome, unspecified (principal); E43 Unspecified severe protein-calorie malnutrition; A04.72 Enterocolitis due to Clostridium difficile, not specified as recurrent; D61.818 Other pancytopenia; R53.1 Weakness; E86.0 Dehydration; E87.6 Hypokalemia; E03.9 Hypothyroidism, unspecified; I10 Essential (primary) hypertension; Z91.81 History of falling; J45.909 Unspecified asthma, uncomplicated; Z87.891 Personal history of nicotine dependence; Z66 Do not resuscitate
CPT/HCPCS: 84134-90; 86870-90; 86905-90; 86922-90; 92523-GN; 97162-GP; 97166-GO; 97530-GO; 97530-GP; 99001-90; G8978-GP-CM; G8979-GP-CK; G8987-GO-CK; G8988-GO-CI; G9165-GN-CH; G9166-GN-CH; J3475; P9016; P9040; P9073